=== PATIENT | female | born 1960 | race Caucasian/White ===

== ENCOUNTER 2023-09-04 06:48 | Day surgery (SDC) | payer OTHER, SELFPAY ==
[2023-09-02 11:24] VITALS: BMI 44.2
[2023-09-04] VITALS (8 sets, daily range): BP systolic 108–120; BP diastolic 48–68; PULSE 56–69; RESP 16; TEMP 36.6; O2SAT 95–97; BMI 44.6
[2023-09-04] MEDS: Lactated Ringers 1,000 ML 100 ML IVCONT (07:37)
[2023-09-04 07:45] LABS: Glucose, Whole Blood 121 mg/dL (60-115)
--- NOTE | 2023-09-04 11:55 | P.CONAN_ITS ---
Documented by User: Abigail Orellana NP 09/03/23 08:24 HPI - Anesthesia Eval Consult details Narrative: 63yo F for Bilateral Medial Rectus Eye Muscle Recession,Right Superior Rectus Recession Medically cleared [facility] Past Medical History Medical History Hyperlipidemia Allergic rhinitis Vitamin D deficiency Asthma Internal hemorrhoids Colon polyp GERD (gastroesophageal reflux disease) Depression Atypical endocervical cells on Pap smear Intermittent vertigo Morbid obesity with BMI of 40.0-44.9, adult Nocturnal hypoxemia Sleep apnea Diabetes Surgical History Surgical History Hx of wisdom tooth extraction H/O colonoscopy Social History Patient Tobacco Use Status: Never used Tobacco Use of substances other than those prescribed or required for medical reasons: No Are you DNR?: No Advance Directives: No Advance Directives Information Provided: Yes Meds Allergies Allergy/AdvReac Type Severity Reaction Status Date / Time Hydrocodone by Bitartrate Allergy Unknown Hives Uncoded 09/04/23 07:45 Skelaxin Allergy Unknown hives Uncoded 09/04/23 07:45 Zinc Allergy Unknown Swelling Uncoded 09/04/23 07:45 tongue Home Medications Medication Instructions Recorded Confirmed Last Taken Type albuterol sulfate 90 mcg/actuation 1 inh inhalation QID PRN Shortness 09/02/23 09/02/23 Unknown History aerosol inhaler Of Breath Or Wheezing atorvastatin 20 mg tablet 20 mg PO BEDTIME 09/02/23 09/04/23 09/04/23 History cetirizine 10 mg tablet 10 mg PO DAILY 09/02/23 09/02/23 Unknown History cholecalciferol (vitamin D3) 25 25 mcg PO DAILY 09/02/23 09/02/23 Unknown History mcg (1,000 unit) tablet fluticasone propionate 110 1 puff inhalation BID 09/02/23 09/02/23 Unknown History mcg/actuation HFA aerosol inhaler fluticasone propionate 50 1 spray intranasal DAILY 09/02/23 09/02/23 Unknown History mcg/actuation nasal spray,suspension meclizine 25 mg tablet 25 mg PO TID 09/02/23 09/02/23 Unknown History metformin 500 mg tablet,extended 500 mg PO DAILY 09/02/23 09/04/23 09/03/23 His tory release 24 hr gahptffx-aoi-bycvu acid 0.4 1 tab PO DAILY 09/02/23 09/04/23 09/04/23 History mg-lycopene 300 mcg-lutein 250 mcg tablet omega-3 fatty acids-vitamin E 1 cap PO DAILY 09/02/23 09/04/23 09/04/23 History 1,000 mg-5 unit capsule pantoprazole 40 mg tablet,delayed 40 mg PO DAILY 09/02/23 09/04/23 09/04/23 History release simethicone 125 mg chewable tablet 125 mg PO QID PRN Gastrointestinal 09/02/23 09/02/23 Unknown History Spasms Or Cramping venlafaxine 75 mg tablet,extended 75 mg PO DAILY 09/02/23 09/04/23 09/04/23 History release 24 hr Exam Height,Weight and Vital Signs: Height 5 ft 6 in Weight 124.284 kg Assessment and Plan Assessment Anesthesia Assessment: Chart Reviewed Documented by User: Mimi Johnson DO 09/04/23 11:56 [facility] Past Medical History Medical History Hyperlipidemia Allergic rhinitis Vitamin D deficiency Asthma Internal hemorrhoids Colon polyp GERD (gastroesophageal reflux disease) Depression Atypical endocervical cells on Pap smear Intermittent vertigo Morbid obesity with BMI of 40.0-44.9, adult Nocturnal hypoxemia Sleep apnea Diabetes Family History Family history of problems with anesthesia: No Surgical History Surgical History Hx of wisdom tooth extraction H/O colonoscopy History of Problems with Anesthesia: No Social History Patient Tobacco Use Status: Never used Tobacco Use of substances other than those prescribed or required for medical reasons: No Are you DNR?: No Advance Directives: No Advance Directives Information Provided: Yes Meds Allergies Allergy/AdvReac Type Severity Reaction Status Date / Time Hydrocodone by Bitartrate Allergy Unknown Hives Uncoded 09/04/23 07:45 Skelaxin Allergy Unknown hives Uncoded 09/04/23 07:45 Zinc Allergy Unknown Swelling Uncoded 09/04/23 07:45 tongue Home Medications Medication Instructions Recorded Confirmed Last Taken Type albuterol sulfate 90 mcg/actuation 1 inh inhalation QID PRN Shortness 09/02/23 09/02/23 Unknown History aerosol inhaler Of Breath Or Wheezing atorvastatin 20 mg tablet 20 mg PO BEDTIME 09/02/23 09/04/23 09/04/23 History cetirizine 10 mg tablet 10 mg PO DAILY 09/02/23 09/02/23 Unknown History cholecalciferol (vitamin D3) 25 25 mcg PO DAILY 09/02/23 09/02/23 Unknown History mcg (1,000 unit) tablet fluticasone propionate 110 1 puff inhalation BID 09/02/23 09/02/23 Unknown History mcg/actuation HFA aerosol inhaler fluticasone propionate 50 1 spray intranasal DAILY 09/02/23 09/02/23 Unknown History mcg/actuation nasal spray,suspension meclizine 25 mg tablet 25 mg PO TID 09/02/23 09/02/23 Unknown History metformin 500 mg tablet,extended 500 mg PO DAILY 09/02/23 09/04/23 09/03/23 History release 24 hr kvxyvcux-hzs-ghddn acid 0.4 1 tab PO DAILY 09/02/23 09/04/23 09/04/23 History mg-lycopene 300 mcg-lutein 250 mcg tablet omega-3 fatty acids-vitamin E 1 cap PO DAILY 09/02/23 09/04/23 09/04/23 History 1,000 mg-5 unit capsule pantoprazole 40 mg tablet,delayed 40 mg PO DAILY 09/02/23 09/04/23 09/04/23 History release simethicone 125 mg chewable tablet 125 mg PO QID PRN Gastrointestinal 09/02/23 09/02/23 Unknown History Spasms Or Cramping venlafaxine 75 mg tablet,extended 75 mg PO DAILY 09/02/23 09/04/23 09/04/23 History release 24 hr Exam Exam Date and Time: September 04, 2023 1153 Airway Mallampati Class: III TM Dist: <=3cm Neck ROM: Full Loose/Missing/Broken Teeth: No Heart: S1S2 Lungs: CTAB Assessment and Plan Assessment Anesthesia Assessment: Anesthesia Plan Discussed and Chart Reviewed Final Anesthetic Review Family History of Problems with Anesthesia: No History of Problems with Anesthesia: No NPO: Yes ASA Class: III Final Preanesthetic Review: No Changes in Pt Med Stat, Meds/Allgs Chart Reviewed, Consent Obtained/Reviewed and Anes Risks/Benef Reviewed Patient Risk: Low Procedure Risk: Low Anesthetic Plan Anesthetic Plan: GA and Agree w/ Assess. and Plan Disposition: Standard PACU
[2023-09-04 12:13] LABS: Glucose, Whole Blood 103 mg/dL (60-115)
--- NOTE | 2023-09-04 14:18 | HO.OPHTHAL ---
Ophthalmology Operative Note Date of Service: 09/04/23 Narrative: diagnoses 1 esotropia 2. Right hypertropia. Procedures 1. Bilateral medial rectus recessions of 4.5 mm 2. Recession of right superior rectus [address] Diaz. Anesthesia general. Complications none. The patient was brought to the operating room placed under general anesthesia. The eyes were prepped and draped in the usual sterile ophthalmic fashion. A lid speculum was placed in the right eye and a peritomy was created around the superior and medial rectus muscles. The medial rectus was hooked and secured with a double-armed Vicryl suture. It was then disinserted from the globe and reattached to a position 4.5 mm behind the original insertion using a hang back technique. The superior rectus muscle was then hooked and secured with a double-armed Vicryl suture. It was disinserted from the globe and reattached to a position 1 mm behind the original insertion. Conjunctiva was closed with interrupted Vicryl sutures. An identical 4.5 mm resection was carried out on the medial rectus muscle of the left eye. The patient was then awoken from general anesthesia and discharged to postoperative recovery in good condition.
== END 2023-09-04 14:50 | disposition home or self-care (01) ==
PROVIDERS: PCP Internal Medicine; Visit Provider Ophthalmology
PROC: (CPT 67311; principal; 2023-09-04 12:40)
DX: H53.2 Diplopia (principal); H50.00 Unspecified esotropia; H50.21 Vertical strabismus, right eye; E11.36 Type 2 diabetes mellitus with diabetic cataract; E66.01 Morbid (severe) obesity due to excess calories; Z68.41 Body mass index [BMI] 40.0-44.9, adult; E78.00 Pure hypercholesterolemia, unspecified; J45.30 Mild persistent asthma, uncomplicated; G47.33 Obstructive sleep apnea (adult) (pediatric); F33.41 Major depressive disorder, recurrent, in partial remission; K21.9 Gastro-esophageal reflux disease without esophagitis; E55.9 Vitamin D deficiency, unspecified; Z79.51 Long term (current) use of inhaled steroids; Z79.84 Long term (current) use of oral hypoglycemic drugs; Z79.899 Other long term (current) drug therapy; Z88.8 Allergy status to other drugs, medicaments and biological substances
CPT/HCPCS: 67311; 67314; 82947; J0131; J1100; J1885; J2405; J2704; J3010

== ENCOUNTER 2024-12-29 13:36 | Outpatient (AMB) | payer OTHER, SELFPAY ==
--- NOTE | 2024-12-29 13:40 | MHC.OFFVIS ---
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 Has a varicose vein on the left thigh that has been painful for about two weeks. 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 She recently was seen at urgent care and diagnosed with cellulitis of the upper left leg, as well as varicose veins and referred here. Complaints include pain over varicosities, warmth, and heaviness of the lower extremities. It has been affecting their daily activities including walking and physical activity. It is noted more so in left upper leg. She is a nonsmoker and a prediabetic, not on any meds. Patient denies any previous venous surgery or injections. Patient denies any history of DVT/ PE. Patient denies any history of phlebitis. Trial of compression includes - nothing They now present for vascular evaluation regarding their varicose veins. [facility] Medical History Hyperlipidemia Allergic rhinitis Vitamin D deficiency Asthma Internal hemorrhoids Colon polyp GERD (gastroesophageal reflux disease) Depression Atypical endocervical cells on Pap smear Intermittent vertigo Morbid obesity with BMI of 40.0-44.9, adult Nocturnal hypoxemia Sleep apnea Diabetes Surgical History Hx of wisdom tooth extraction H/O colonoscopy Social History Comment: counts correct Patient Tobacco Use Status: Never used Tobacco Review of Systems Const Reports as per HPI and Denies weakness ENT Reports Normal hearing present and Denies dizziness Card Reports as per HPI, Denies chest pain, Denies chest pain at rest, Denies chest pain with activity, Denies dyspnea and Denies dyspnea on exertion Resp Reports as per HPI, Denies cough, Denies dyspnea and Denies dyspnea on exertion GI Reports as per HPI, Denies abdominal pain, Denies nausea and Denies vomiting Musc Denies numbness Skin/Breast Reports as per HPI, Denies erythema and Denies wounds Neuro Reports Normal hearing present, Denies dizziness, Denies numbness, Denies Sensory deficit (Neuro) and Denies weakness Psych Reports no additional complaints Endo Reports no additional complaints Physical Exam Const General: healthy appearing and no acute distress Orientation/consciousness: patient oriented x3 HEENT Head: Yes normal to inspection Ears: hearing grossly normal bilaterally Mouth: Normal oral and palatal mucosa present Resp Effort & Inspection: normal respiratory effort and able to speak in complete sentences Auscultation: clear to auscultation bilaterally Cardio Jugular venous distension: no JVD Rate: regular rate Rhythm: regular rhythm Heart sounds: S1 normal heart sound present and S2 normal heart sound present Bruits: no abdominal aortic bruits, no carotid bruits, no femoral bruits and no renal bruits Peripheral pulses: Peripheral pulses 2+ throughout GI Inspection: Yes normal to inspection Palpation (GI): No Abdominal aortic bruit present Skin General skin exam: no rashes or lesions noted Wounds: no wounds Hair: normal Neuro General: patient oriented x3 Cranial nerves: Yes Normal hearing present Cognition (Neuro): normal cognition Gait exam (Neuro): Normal gait present Motor exam (neuro): 5/5 motor strength present throughout Sensory Exam: No Sensory deficit (Neuro) Extrem Other: Left lower extremity: rope like varicosity, appx 5cm in length, noted on the left upper thigh across the leg. Painful to palpation. Slight erythema noted towards the groin. Yellow/brown bruised discoloration noted over the varicosity. Warm to the touch. SV noted around the knee. Palpable DP pulses. Trace peripheral edema noted. Right lower extremity: small rope like varicosity noted on the lateral aspect below the pretibial area, appx 2-3cm in length, not painful to palpation. SV noted around the knee. Palpable DP pulse. Trace peripheral edema noted. CEAP: C - 3 E - primary A - superficial P - reflux General: Yes normal to inspection, Yes full ROM, Yes capillary refill normal and Yes normal gait Assessment & Plan Assessment & Plan (1) Varicose veins of both lower extremities with inflammation: Code(s): I83.11 - Varicose veins of right lower extremity with inflammation; I83.12 - Varicose veins of left lower extremity with inflammation Category: Medical Plan: Lourdes is presenting today on a referral from urgent care for concerns of varicose veins. She was previously seen there due to pain and redness over her left upper thigh and was diagnosed with cellulitis. Likely due to patient presentation this was a superficial thrombophlebitis. I discussed whether to complete the course of antibiotics. We discussed to apply heat as well as batz-jim-pxokarn NSAIDs if this is still bothering her. In short, the patient has evidence of venous insufficiency. I have discussed the pathophysiology with the patient. In addition I have provided informational material regarding venous disease to the patient. We have discussed conservative measures including compression, elevation, and exercise. I have taken the liberty of ordering venous insufficiency testing with the patient. They will follow up with me after testing. The patient had an opportunity to ask questions regarding the treatment plan. All questions were answered. Imaging studies, laboratory studies and physical exam results were discussed and reviewed in detail. No major barriers to understanding were identified. The patient expressed understanding and agreement with the above treatment plan. The patient is aware they should contact our office by phone for worsening of the current condition or the appearance of new symptoms. Thank you for allowing me to participate in the vascular care of this patient. If you have any questions or concerns regarding the treatment for the above condition please do not hesitate to contact me. The office telephone contact is [phone]. This note is constructed using voice recognition software. While every effort has been made to ensure accuracy, firmware architect errors may have been included. Thank you for allowing me to participate in the care of your patient. Yours sincerely, RADHA Munroe Orders: Orders US venous duplex LE BI 1 Week I83.11 - Varicose veins of right lower extremity with inflammation, I83.12 - Varicose veins of left lower extremity with inflammation Coding Level of Care Code New Pt Level 4 (96853) Diagnoses Varicose veins of both lower extremities with inflammation I83.11; I83.12
--- OUTSIDE RECORDS SUMMARY | 2024-12-29 16:03 | XMS_ITS | Encounter Summary ---
Author Organization [facility] Address [address] [place] [address] Care Team Providers Care Paraffiner Name Role Phone Lili Moon MD Primary Care Provider [phone] Reason for Visit * Consultation (Routine) - Authorized Specialty Diagnoses / Procedures Referred By Ben perez Referred To Contact Physical Therapy Diagnoses Chronic pain of right upper extremity Heidi Esquivel PA [address] [place] [address] Phone: tel: fax: Referral ID Status Reason Start Date Expiration Date Visits Requested Visits Authorized [id number] Authorized Specialty Services Required 11/03/2024 11/03/2025 20 20 Encounter Details Date Type Department Care Team (Late st Contact Info) Description 12/23/2024 4:00 PM EDT Treatment [facility] Outpatient [address] [phone] Yaakov Celis PTA Chronic pain of right upper extremity (Primary Dx) Social History Tobacco Use Types Packs/Day Years Used Date Smoking Tobacco: Never Smokeless Tobacco: Never Alcohol Use Standard Drinks/Week Comments Yes 0 (1 standard drink = 0.6 oz pur e alcohol) Housing Instability Answer Date Recorde d Are you worried that in the next 2 months you may not have stable housing? No 10/31/2024 Food Access & Nutrition Answer Date Rec orded Do you have access to a vari ety of food including fruits and vegetables? Yes 10/31/2024 Access to Healthcare Answer Date Record ed Within the last 3 months, ho w many times did you visit the emergency department for your medical care? 0 10/31/2024 Health Literacy Answer Date Recorded How often do you need to hav e someone help you when you read instructions, pamphlets, or other written material from your doctor or pharmacy? Never 10/31/2024 Caregiver: How often do you need to have someone help you when you read instructions, pamphlets, or other written material from your doctor or pharmacy? Not on file 10/31/2024 Financial Risk Answer Date Recorded How hard is it for you to pa y for the very basics like food, housing, medical care, and air conditioning / heating? Not very hard 10/31/2024 Transportation Answer Date Recorded Has the lack of transportati on kept you from meetings, work, or from getting things needed for daily living? No Has the lack of transportati on kept you from medical appointments or from getting medications? No 10/31/2024 Social Isolation Answer Date Recorded How often do you feel lonely or isolated from th ose around you? Rarely 10/31/2024 Food Risk Answer Date Recorded Within the past 12 months we worried whether our food would run out before we got money to buy more. Never true 10/31/2024 Within the past 12 months th e food we bought just didn't last and we didn't have money to get more. Never true 10/31/2024 Dependent Care Answer Date Recorded Do you need help finding or paying for care for your loved ones. For example, child development director or elderly care for an older adult? No 10/31/2024 Education Answer Date Recorded Do you think completing more education or training, like finishing a GED, going to college, or learning a trade, would be helpful for you? N/A 10/31/2024 Employment and Income Answer Date Recor ded During the last four weeks, have you been actively looking for work? No 10/31/2024 Living Situation Answer Date Recorded What is your living situation? 0 10/31/2024 Comments No Sex and Gender Information Value Date Recorded Sex Assigned at Not on file Legal Sex Female 4:48 PM EST Gender Identity Not on file Sexual Orientation Not on file Travel History Travel Start Travel End [place] 11/28/2024 12/05/2024 documented as of this encounter Progress Notes * Yaakov Celis PTA - 12/23/2024 4:00 PM EDT [facility] - Outpatient PHYSICAL THERAPY DAILY TREATMENT NOTE - OP Date: 12/23/2024 Visit Number: 5 Patient Name: Lourdes Guerrier : 1960 Age: 64 y.o. Gender: female Diagnosis: ICD-10-CM ICD-9-CM 1. Chronic pain of right upper extremity M79.601 729.5 G89.29 338.29 Date of Onset/Surgery: 11/03/2024 Referring Provider: Heidi Esquivel PA Insurance: Payor: [employer] [facility] / Plan: [employer] [place] / Product Type: *No Product type* / Patient Identified by: Yaakov Celis PTA Language: Speaks and understands Chinese as preferred language with no loom operator required Medications: Current Outpatient Medications on File Prior to Visit Medication Sig Dispense Refill albuterol HFA (PROAIR HFA ; PROVENTIL HFA ; VENTOLIN HFA) 90 mcg/actuation inhaler Inhale 2 puffs by mouth 4 (four) times a day. 8.5 g 1 ascorbic acid (VITAMIN C) 500 mg CR capsule Take 1 capsule (500 mg total) by mouth 1 (one) time each day. atorvastatin (LIPITOR) 20 mg tablet Take 1 tablet (20 mg total) by mouth at bedtime. at bedtime. 90tablet 1 blood sugar diagnostic (FreeStyle Lite Strips) test strip Test blood sugar once daily cholecalciferol (VITAMIN D-3) 25 mcg (1,000 unit) capsule 1,000 Units. fluticasone HFA (FLOVENT HFA) 110 mcg/actuation inhaler Inhale 1 Puff into the lungs 2 times daily. fluticasone propionate (FLONASE) 50 mcg/actuation nasal spray 2 Sprays by Nasal route daily. Intranasal: Two sprays in each nostril once daily; once symptoms controlled reduce to 1 spray in each nostril once daily . Maintenance therapy is FREESTYLE LANCETS MISC Use to test blood sugar once daily multivitamin with minerals (MULTIPLE VITAMIN-MINERALS ORAL) Take by mouth. omega-3 acid ethyl esters (LOVAZA) 1 gram capsule 1,000 mg. pantoprazole (PROTONIX) 40 mg EC tablet Take 1 tablet (40 mg total) by mouth 1 (one) time each day before breakfast. Do not crush, chew, or split. 30 tablet 3 venlafaxine XR (EFFEXOR-XR) 75 mg 24 hr capsule Take 1 capsule (75 mg total) by mouth 1 (one) time each day. 90 capsule 1 No current facility-administered medications on file prior to visit. Allergies: is allergic to hydrocodone bitartrate, metaxalone, other, and zinc. Precautions: none Fall risk: No SUBJECTIVE Subjective Report: Not much pain in the neck or tingling in the arm today Chart Reviewed: Yes Pain: R cerv area, 01/21 TREATMENT INTERVENTION: Manual therapy Seated STM to R PC, R UT/levator/scalenes Man cerv traction OA release Exercises: UBE L1 x 3 mins Black tubing rows and B shld ext, 2x10 ea Pec stretch in doorway with hands low, 5x15 secs ea done unilaterally Seated man resisted isometric R and L cerv SB and ext, 10 x 5 secs ea Passive R and L UT and scalene stretching in supine ASSESSMENT/Response to Treatment Good Tolerated treatment well Patient Education: Education provided: yes. Reviewed posture and exs given at last visit Education Provided To: Patient utilizing Explanation and Demonstration mode(s) of education Response to Education: Verbal Understanding PLAN POC Development/Review: No Change in the Plan of Care; Participants: Patient Interventions Time Entry: Modalities: Therapeutic procedures: Manual Therapy Time Entry: 14 Therapeutic Exercise Time Entry: 16 Total Treatment Time: 30 mins Documentation completed by Yaakov Celis PTA documented in this encounter Plan of Treatment Upcoming Encounters Date Type Department Care Team (Late st Contact Info) Description 12/30/2024 4:00 PM EDT Treatment [address] [phone] Yaakov Celis PTA 01/06/2025 4:00 PM EDT Treatment [address] [place] [id number] Jaden Allan, PT [address] [place] [address] 01/18/2025 3:45 PM EDT Office Visit Adult Medicine [facility] [address] [place] [address] Lili Moon MD [address] [place], [place] documented as of this encounter Goals Goal Patient Goal Type Associated Problems Recent Progress Patient-Stated? Author PT STG x 8 visits General No Jaden lAlan PT Note: [] Pt will report an average shoulder pain level decrease of 2/10, [] Pt will increase right shoulder abd active ROM to 135 degrees, [] Pt will increase right shoulder flexion active ROM to 140 degrees []Pt will be able to work in computer >30 min without being limited by shoulder pain []Pt will improve C rotation to 70 deg to left in order to aid in looking over shoulder, []Pt will improve shoulder ER strength to 4/5 []Pt will be able to perform active scap retraction and depression which demonstrates good mm recruitment [] Pt will report a 50% reduction in paresthesia. PT LTG x 16 visits General No Jaden Allan PT Note: []Pt will be able to resume clasping/unclasping bra in the back []Pt will be able to resume carrying book bag or purse on right []Pt will be able to use computer >1 hr if needed without being limited by Sx []Pt will be able to carry laundry/trash bags with R UE PRN documented as of this encounter Visit Diagnoses Diagnosis Chronic pain of right upper extremity- Primary documented in this encounter Additional Health Concerns Assessment Noted Time PHQ-9 Depression Total Score: 1 10/31/19 25 11:54 PM EST documented as of this encounter Care Teams Paraffiner Relationship Specialty Start Date End Date Lili Moon MD [address] [place] [address] PCP - General Internal Medicine 08/25/21 documented as of this encounter
--- OUTSIDE RECORDS SUMMARY | 2024-12-29 16:03 | XMS_ITS | Encounter Summary ---
Author Organization [facility] Address [address] [place] [address] Care Team Providers Care Print Shop Manager Name Role Phone Lili Moon MD Primary Care Provider [phone] Reason for Visit * Consultation (Routine) - Authorized Specialty Diagnoses / Procedures Referred By Ben perez Referred To Contact Physical Therapy Diagnoses Chronic pain of right upper extremity Heidi Esquivel PA [address] [place] [address] Phone: tel: fax: Referral ID Status Reason Start Date Expiration Date Visits Requested Visits Authorized [id number] Authorized Specialty Services Required 11/03/2024 11/03/2025 20 20 Encounter Details Date Type Department Care Team (Late st Contact Info) Description 12/16/2024 4:00 PM EST Treatment [address] [id number] Yaakov Celis PTA Chronic pain of right [...] care for your loved ones. For example, children librarian or elderly care for an older adult? [...] file Travel History Travel Start Travel End [place] 11/28/2024 12/05/2024 documented as of this encounter Progress Notes * Yaakov Celis PTA - 12/16/2024 4:00 PM EST [facility] - Outpatient PHYSICAL THERAPY DAILY TREATMENT NOTE - OP Date: 12/16/2024 Visit Number: [id number] Patient Name: Lourdes Guerrier : 1960 Age: 64 y.o. Gender: female Diagnosis: ICD-10-CM ICD-9-CM 1. Chronic pain of right upper extremity M79.601 729.5 G89.29 338.29 Date of Onset/Surgery: 11/03/2024 Referring Provider: Heidi Esquivel PA Insurance: Payor: [employer] [facility] / Plan: [employer] ADMIN OF ID / Product Type: *No Product type* / Patient Identified by: Yaakov Celis PTA Language: Speaks and understands British as preferred language with no park manager required Medications: Current Outpatient Medications on File [...] (one) time each day. 90 capsule 1 [DISCONTINUED] pantoprazole (PROTONIX) 40 mg EC tablet TAKE 1 TABLET BY MOUTH EVERY MORNING ON AN EMPTY STOMACH, WAIT 30 MINUTES THEN EAT TO ACTIVATE MEDICATION 30 tablet 3 No current facility-administered medications on file prior to visit. Allergies: is allergic to hydrocodone bitartrate, metaxalone, other, and zinc. Precautions: none Fall risk: No SUBJECTIVE Subjective Report: Neck is more sore after working today, but tingling in R hand has been less frequent today Chart Reviewed: Yes Pain: R cerv area, 03/23 TREATMENT INTERVENTION: Manual therapy Seated STM to R PC, R UT/levator/scalenes Man cerv traction OA release Exercises: UBE L1 x 2 mins (10/14) Green tubing rows x 10 - increased cerv soreness Pec stretch in doorway with hands low, 5x20 secs ea Passive R and L UT and scalene stretching in supine Seated man resisted isometric R and L cerv SB and ext, 10 x 5 secs ea ASSESSMENT/Response to Treatment Good Tolerated treatment well Patient Education: Education provided: yes. Reviewed posture and exs given at last visit Education Provided To: Patient utilizing Explanation and Demonstration mode(s) of education Response to Education: Verbal Understanding PLAN POC Development/Review: No Change in the Plan of Care; Participants: Patient Interventions Time Entry: Modalities: Therapeutic procedures: Manual Therapy Time Entry: 15 Therapeutic Exercise Time Entry: 15 Total Treatment Time: 25 mins Documentation completed by Yaakov Celis PTA documented in this encounter Plan of Treatment Upcoming Encounters Date Type Department Care Team (Late st Contact Info) Description 12/30/2024 4:00 PM EDT Treatment [address] [address] Yaakov Celis, SALESPERSON [employer] 01/06/2025 4:00 PM EDT Treatment [facility] [place] [address] [address] Jaden Allan, PT [address] [place] [address] 01/18/2025 3:45 PM EDT Office Visit Adult Medicine [facility] [address] [place] [address] Lili Moon MD [address] [place] [address] documented as of this encounter Goals Goal Patient Goal Type Associated Problems Recent Progress Patient-Stated? Author PT STG x 8 visits General No Jaden Allan PT Note: [] Pt will report an [...] LTG x 16 visits General No Jaden Allan, PT Note: []Pt will be able to [...] documented as of this encounter Care Teams Print Shop Manager Relationship Specialty Start Date End Date Lili Moon MD [address] [place] [address] PCP - General Internal Medicine 08/25/21 documented as of this encounter
--- OUTSIDE RECORDS SUMMARY | 2024-12-29 16:03 | XMS_ITS | Clinical Summary ---
Author Organization [address] Address [address] [place], [place] [address] [address] Phone Care Team Providers Care Asset Protection Associate Name Role Phone Lili Moon MD Primary Care Provider [phone] Allergies Active Allergy Reactions Criticality Noted Date Comments Hydrocodone Bitartrate Hives 09/18/2006 Metaxalone Hives 09/18/2006 Other Nausea And Vomiting 02/05/2022 Zinc 09/18/2006 Other Reaction(s): Numbness, tingling or swelling of the lips, tongue or mouth Medications fluticasone HFA (FLOVENT HFA) 110 mcg/actuation inhaler Inhale 1 Puff into the lungs 2 times daily. 12/10/19 24 Active fluticasone propionate (FLONASE) 50 mcg/actuation nasal spray 2 Sprays by Nasal route daily. Intranasal: Two sprays in each nostril once daily; once symptoms controlled reduce to 1 spray in each nostril once daily . Maintenance therapy is 03/02/20 24 Active FREESTYLE LANCETS MISC Use to test blood sugar once daily 10/28/19 24 Active blood sugar diagnostic (FreeStyle Lite Strips) test strip Test blood sugar once daily 02/06/20 22 Active multivitamin with minerals (MULTIPLE VITAMIN-MINERALS ORAL) Take by mouth. Activ e cholecalciferol (VITAMIN D-3) 25 mcg (1,000 unit) capsule 1,000 Units. 08/23/20 17 Active omega-3 acid ethyl esters (LOVAZA) 1 gram capsule 1,000 mg. 08/23/20 17 Active ascorbic acid (VITAMIN C) 500 mg CR capsule Take 1 capsule (500 mg total) by mouth 1 (one) time each day. Active atorvastatin (LIPITOR) 20 mg tablet Take 1 tablet (20 mg total) by mouth at bedtime. at bedtime. 90 tablet 1 09/16/20 24 Active venlafaxine XR (EFFEXOR-XR) 75 mg 24 hr capsule Take 1 capsule (75 mg total) by mouth 1 (one) time each day. 90 capsule 1 09/16/20 24 Active albuterol HFA (PROAIR HFA ; PROVENTIL HFA ; VENTOLIN HFA) 90 mcg/actuation inhalerIndicatio ns:Mild intermittent asthma without complication Inhale 2 puffs by mouth 4 (four) times a day. 8.5 g 1 09/16/20 24 Active pantoprazole (PROTONIX) 40 mg EC tabletIndication s:Gastroesophage al reflux disease without esophagitis Take 1 tablet (40 mg total) by mouth 1 (one) time each day before breakfast. Do not crush, chew, or split. 30 tablet 3 12/16/19 25 Active pantoprazole (PROTONIX) 40 mg EC tabletIndication s:Gastroesophage al reflux disease without esophagitis TAKE 1 TABLET BY MOUTH EVERY MORNING ON AN EMPTY STOMACH, WAIT 30 MINUTES THEN EAT TO ACTIVATE MEDICATION 30 tablet 3 11/24/19 25 025 Discontin ued(Reord er) Active Problems Problem Noted Date Diagnosed Date Microalbuminuria 04/24/2024 Type II diabetes mellitus with renal manifestati ons 04/24/2024 Type 2 diabetes mellitus with cataract 3 Nocturnal hypoxemia 12/02/2019 Overview (07/31/2024): Overnight on CPAP 02/02/21 shows good control at 99.5% above 90%. No need for supplemental oxygen. Sleep apnea 12/02/2019 Overview (07/31/2024): INCONSISTENT USE OF CPAP (Jul 2022) [facility] Home Sleep Apnea Test: Date 11/30/2019; Wt 252#; BMI 40; KENYETTA 34, AI 20; HI 14; Unclassified apneas 179; Obstructive apneas 0; Central apneas 0; Mixed apneas 0; hypopneas 121; average oxygen saturation 90% (lowest 62% with saturations <88% for 5% or more of study) - Sleep Apnea - severe; mostly unclassified apneas; with sleep related hypoventilation by 2019 home sleep apnea test. Type 2 diabetes mellitus with morbid obesity Atypical endocervical cells on Pap smear 019 Intermittent vertigo 03/05/2019 Depression 07/08/2018 GERD (gastroesophageal reflux disease) 8 Colon polyp 08/25/2014 Internal hemorrhoids 08/20/2014 Vitamin D deficiency 04/14/2014 Allergic rhinitis 09/18/2006 Hyperlipidemia 09/18/2006 Asthma 09/18/2006 Encounters Date Type Department Care Team Description 12/28/2024 4:30 PM EDT Treatment [facility] [address] [phone] Roland Manning, SUPERVISOR LOCOMOTIVE Chronic pain of right upper extremity (Primary Dx) 12/23/2024 4:00 PM EDT Treatment [facility] [address] [phone] Yaakov Celis, SUPERVISOR LOCOMOTIVE Chronic pain of right upper extremity (Primary Dx) 12/16/2024 4:00 PM EST Treatment [facility] [address] [phone] Yaakov Celis, SUPERVISOR LOCOMOTIVE Chronic pain of right upper extremity (Primary Dx) 12/14/2024 4:00 PM EST Treatment [facility] [address] [phone] Yaakov Celis, SUPERVISOR LOCOMOTIVE Chronic pain of right upper extremity (Primary Dx) 12/10/2024 4:00 PM EST Treatment [facility] [address] [phone] Randy Gibbs, SUPERVISOR LOCOMOTIVE Chronic pain of right upper extremity (Primary Dx) 12/07/2024 4:30 PM EST Evaluation [facility] [address] [phone] Jaden Allan, PT Chronic pain of right upper extremity 11/03/2024 3:44 PM EST - 11/03/2024 11:59 PM EST Hospital Encounter XRAY - [address] [phone] Chronic pain of right upper extremity Discharge Disposition: Home or Self Care 11/03/2024 3:43 PM EST - 11/03/2024 11:59 PM EST Hospital Encounter XRAY - [address] [phone] Chronic pain of right upper extremity Discharge Disposition: Home or Self Care 11/03/2024 3:30 PM EST [facility] [address] [phone] Heidi Esquivel PA Chronic pain of right upper extremity (Primary Dx) 10/05/2024 8:26 AM EST - 10/05/2024 11:59 PM EST Hospital Encounter Radiology Department - [address] [phone] Visit for screening mammogram Discharge Disposition: Home or Self Care from Last 3 Months Immunizations Name Administration Dates Next Due Influenza Quadravalent, MDCK , 0.5ml, preservative free (Flucelvax) 6mo and older 07/22/2023,08/07/2022 Influenza trivalent, 0.5mL (Fluad) 65yo and olde r 07/21/2020 Influenza trivalent, 0.5mL, preservative free (Fluarix; FluLaval; Fluzone) ages 6mo and older (Afluria) 3 years and older 09/12/2016 Pneumococcal conjugate 13 va lent (Prevnar 13, PCV13) 2mo and older 12/06/2016 Pneumococcal conjugate 20 va lent (Prevnar 20, PCV 20) 2mo and older 09/17/2022 Pneumococcal polysaccharide 23 valent (Pneumovax 23) 2yo and older 07/08/2018 Respiratory syncytial virus (RSV), unspecified 0 12/16/2023 Tdap Tetanus diptheria acell ular pertussis (Boostrix; Adacel) 7yo and older 10/11/2022,12/06/2016 Zoster recombinant (Shingrix) 19yo and older 02/2022,02/10/2022 Surgical History Surgery Date Site/Laterality Comments WISDOM TOOTH EXTRACTION COLONOSCOPY 11/2022 SCR MAMMO BI INCL CAD 09/13/2021 Bilateral Medical History Medical History Date Comments Allergic rhinitis 09/18/2006 Hyperlipidemia 09/18/2006 Asthma 09/18/2006 Colon polyp 08/25/2014 Depression 07/08/2018 GERD (gastroesophageal reflux disease) 8 Internal hemorrhoids 08/20/2014 Vitamin D deficiency 04/14/2014 Morbid obesity with BMI of 40.0-44.9, adult ([facility]) 12/05/2018 Atypical endocervical cells on Pap smear 019 Intermittent vertigo 03/05/2019 Esophagitis Type 2 diabetes mellitus with cataract ([facility]) 05/09/2023 Type II diabetes mellitus with renal manifestati ons ([facility]) 04/24/2024 Family History Medical History Relation Name Comments Heart attack Maternal Grandfather Diabetes Mother brain aneurysm Breast cancer Neg Hx Colon cancer Neg Hx Ovarian cancer Neg Hx Uterine cancer Neg Hx Relation Name Status Comments Father unknown history Maternal Grandfather Maternal Grandmother unknown Mother (Age 60) Social History Tobacco Use Types Packs/Day Years Used Date Smoking Tobacco: Never Smokeless Tobacco: Never Tobacco Cessation:Counseling Given: Not Answered Alcohol Use Standard Drinks/Week Comments Yes 0 [...] Record ed Within the last 3 months, hector w many times did you visit the [...] for your loved ones. For example, child attendant or elderly care for an older adult? [...] file Travel History Travel Start Travel End [place] 11/28/2024 12/05/2024 Obstetrics History Para Term AB IAB SAB Ectopic Multiple Livin g Live Births 0 0 0 Last Filed Vital Signs Vital Sign Reading Time Taken Comments Blood Pressure 126/68 11/03/2024 3:19 PM EST Pulse 73 11/03/2024 3:19 PM EST Temperature 36.4 ??C (97.5 ??F) 11/03/2024 3:19 PM ES T Respiratory Rate 18 11/03/2024 3:19 PM EST Oxygen Saturation 96% 09/16/2024 3:11 PM EST Inhaled Oxygen Concentration - - Weight 116 kg (255 lb) 11/03/2024 3:19 PM EST Height 167.6 cm (5' 6 ) 11/03/2024 3:19 PM EST Body Mass Index 41.16 11/03/2024 3:19 PM EST Plan of Treatment Upcoming Encounters Date Type Department Care Team (Late st Contact Info) Description 12/30/2024 4:00 PM EDT Treatment [facility] [address] [phone] Yaakov Celis PTA 01/06/2025 4:00 PM EDT Treatment [facility] [address] [phone] Jaden Allan, PT [address] [place] [address] 01/18/2025 3:45 PM EDT Office Visit Adult Medicine [facility] [address] [place] [address] Lili Moon MD [address] [place] [address] Health Maintenance Due Date Last Done Comments Diabetes: Annual Foot Exam 1972 RSV Immunization Patients 60+ Years Old (1 - Risk 60-74 years 1-dose series) 2022 12/16/2023 HIV Screening 09/22/2022 Cervical Cancer Screening: HPV 06/04/2024 06/04/2019 Diabetes: Blood Sugar Control Test (HGBA1C) 03/11/2025 09/11/2024, 04/23/2024, 04/23/2024 Diabetes: Annual Urine Albumin-Creatinine Ratio (uACR) 04/23/2025 04/23/2024 Diabetes: Annual GFR (Glomerular Filtration Rate) 04/23/2025 04/23/2024, 04/23/2024 Diabetes: Annual Retina Eye Exam 07/02/2025 07/02/2024 Depression Screening 10/31/2025 10/31/2024 Social Influencers of Health Screening 10/31/2025 10/31/2024 Breast Cancer Screening 09/24/2026 09/24/20 24, 09/14/2023, 09/08/2022, Additional history exists Cholesterol Screening (Lipid Panel) 04/23/2029 04/23/2024, 04/23/2024 DTaP,Tdap,and Td Vaccines (3 - Td or Tdap) 10/11/2032 10/11/2022, 12/06/2016 Colorectal Cancer Screening: Colonoscopy 12/05/2032 12/05/2022 Hepatitis C Screening Completed 03/05/2019 Pneumococcal Vaccine: 50+ Years Completed 09/17/2022, 07/08/2018, 12/06/2016 Pneumococcal Vaccine: Pediatrics (0 to 5 Years) and At-Risk Patients (6 to 64 Years) Completed 09/17/2022, 07/08/2018, 12/06/2016 Zoster Vaccines Completed 09/17/2022, 02/10/2022 RSV Immunization Patients Under 20 months Aged Out 12/16/2023 No longer eligible based on patient's age to complete this topic COVID-19 Vaccine Completed 09/01/2024, 01/2024, 11/20/2021, Additional history exists Influenza Vaccine Completed 09/01/2024, , 08/07/2022, Additional history exists HIB Vaccines Aged Out No longer eligi ble based on patient's age to complete this topic HPV Vaccines Aged Out No longer eligi ble based on patient's age to complete this topic Hepatitis A Vaccines Aged Out No long er eligible based on patient's age to complete this topic Hepatitis B Vaccines Aged Out No long er eligible based on patient's age to complete this topic IPV Vaccines Aged Out No longer eligi ble based on patient's age to complete this topic MMR Vaccines Aged Out No longer eligi ble based on patient's age to complete this topic Meningococcal ACWY Vaccine Aged Out N o longer eligible based on patient's age to complete this topic Meningococcal B Vacine Aged Out No lo nger eligible based on patient's age to complete this topic Varicella Vaccines Aged Out No longer eligible based on patient's age to complete this topic Goals Goal Patient Goal Type Associated Problems [...] carry laundry/trash bags with R UE PRN Procedures Procedure Name Priority Date/Time Associated Diagnosis Comments XR CERVICAL SPINE 4-5 VIEWS Routine 11/03/2024 4:06 PM EST Chronic pain of right upper extremity XR SHOULDER 2+ VIEWS RIGHT Routine 11/03/2024 4:06 PM EST Chronic pain of right upper extremity MG RAD RETURN VISIT (NO CHARGE) Routine 10/05/2024 8:40 AM EST Visit for screening mammogram MG MAMMO DIGITAL SCREENING W ERVIN BILAT Routine 09/24/2024 4:21 PM EST Encounter for screening mammogram for breast cancer HEMOGLOBIN A1C Routine 09/11/2024 8:10 AM EST Type 2 diabetes mellitus with morbid obesity (CMS/HCC) DIABETES EYE EXAM Routine 07/02/2024 URINE ALBUMIN CREATININE RATIO Routine 04/23/2024 ANNUAL BMP BLOOD TEST Routine 04/23/2024 LIPID PANEL Routine 04/23/2024 COLONOSCOPY Routine 12/05/2022 HPV Routine 06/04/2019 HEPATITIS C SCREENING Routine 03/05/2019 from Last 3 Months or Most Recently Relevant to Health Maintenance Results * XR Cervical Spine 4-5 Views (11/03/2024 4:06 PM EST) Anatomical Region Laterality Modality Spine, C-spine Radiographic Viji ging 11/03/2024 4:44 PM EST Impressions 11/03/2024 4:46 PM EST Mild degenerative changes. -------- FINAL REPORT -------- Dictated By: Leobardo Sylvester Dictated Date: 11/03/2024 16:44 ET Assigned Physician: Leobardo Sylvester Reviewed and Electronically Signed By: Leobardo Sylvester Signed Date: 11/03/2024 16:46 ET Workstation ID: [id number] Transcribed By: Self Edit Transcribed Date: 11/03/2024 16:44 ET Narrative 11/03/2024 4:46 PM EST XR CERVICAL SPINE 4-5 VIEWS Reason: pain Comparison: None FINDINGS: Normal alignment. ??Vertebral body heights are maintained. ??Disc spaces are preserved. ??Small marginal osteophytes more prominent at inferior endplate of C6. ??Mild neuroforamina narrowing on the right side at C5-C6. ??Left neuroforamen are intact. Procedure Note Leobardo Sylvester MD - 11/03/2024 XR CERVICAL SPINE 4-5 VIEWS Reason: pain Comparison: None FINDINGS: Normal alignment. Vertebral body heights are maintained. Disc spaces arepreserved. Small marginal osteophytes more prominent at inferior endplateof C6. Mild neuroforamina narrowing on the right side at C5-C6. Leftneuroforamen are intact. IMPRESSION: Mild degenerative changes. -------- FINAL REPORT -------- Dictated By: Leobardo Sylvester Dictated Date: 11/03/2024 16:44 ET Assigned Physician: Leobardo Sylvester Reviewed and Electronically Signed By: Leobardo Sylvester Signed Date: 11/03/2024 16:46 ET Workstation ID: [id number] Transcribed By: Self Edit Transcribed Date: 11/03/2024 16:44 ET us Heidi GARCIA IMG XR PROCEDURES Final Resul t * XR Shoulder 2+ Views Right (11/03/2024 4:06 PM EST) Anatomical Region Laterality Modality Upper Extremities, Shoulder Right Radi ographic Imaging 11/03/2024 4:47 PM EST Impressions 11/03/2024 4:48 PM EST Minimal degenerative changes. -------- FINAL REPORT -------- Dictated By: Leobardo Sylvester Dictated Date: 11/03/2024 16:47 ET Assigned Physician: Leobardo Sylvester Reviewed and Electronically Signed By: Leobardo Sylvester Signed Date: 11/03/2024 16:48 ET Workstation ID: [id number] Transcribed By: Self Edit Transcribed Date: 11/03/2024 16:47 ET Narrative 11/03/2024 4:48 PM EST XR SHOULDER 2+ VIEWS RIGHT Reason: pain Comparison: None FINDINGS: Minimal degenerative change at the acromioclavicular joint. ??Glenohumeral joint is intact. ??No acute fracture. ??No abnormal soft tissue calcification. Procedure Note Leobardo Sylvester MD - 11/03/2024 XR SHOULDER 2+ VIEWS RIGHT Reason: pain Comparison: None FINDINGS: Minimal degenerative change at the acromioclavicular joint. Glenohumeraljoint is intact. No acute fracture. No abnormal soft tissuecalcification. IMPRESSION: Minimal degenerative changes. -------- FINAL REPORT -------- Dictated By: Leobardo Sylvester Dictated Date: 11/03/2024 16:47 ET Assigned Physician: Leobardo Sylvester Reviewed and Electronically Signed By: Leobardo Sylvester Signed Date: 11/03/2024 16:48 ET Workstation ID: [id number] Transcribed By: Self Edit Transcribed Date: 11/03/2024 16:47 ET us Heidi GARCIA IMG XR PROCEDURES Final Resul t * MG Rad Return Visit (No Charge) (10/05/2024 8:40 AM EST) Anatomical Region Laterality Modality N/A Mammography 10/05/2024 8:49 AM EST Impressions 10/05/2024 8:52 AM EST 1. No mammographic evidence of malignancy 2. Heterogeneous breast parenchyma BI-RADS CATEGORY: 2 - BENIGN RECOMMENDATION: Screening bilateral mammogram is recommended in 1 year. Mammo Location: [facility], [address] [place] [address], [id number], . -------- FINAL REPORT -------- Dictated By: Sam Ellington Dictated Date: 10/05/2024 08:49 ET Assigned Physician: Sam Ellington Reviewed and Electronically Signed By: Sam Ellington Signed Date: 10/05/2024 08:52 ET Workstation ID: [id number] Transcribed By: Self Edit Transcribed Date: 10/05/2024 08:49 ET Narrative 10/05/2024 8:52 AM EST A BILATERAL DIGITAL 3D SCREENING MAMMOGRAPHY, REPEAT EXAMINATION HISTORY: Routine screening. ??No family history of breast cancer. COMPARISON: Multiple priors dating back to 09/02/2021 Technique: Bilateral full field digital mammography (3D) was performed using standard CC and MLO projections , left cleavage view was performed CAD ??was used to evaluate this mammogram. FINDINGS: Right: No suspicious masses, groups of microcalcification or areas of architectural distortion identified. Stable typically benign parenchymal asymmetries. Left: No suspicious masses, groups of microcalcification or areas of architectural distortion identified. Stable typically benign parenchymal asymmetries. BREAST DENSITY: C - The breasts are heterogeneously dense which may obscure small masses. Procedure Note Sam Ellington MD - 10/05/2024 A BILATERAL DIGITAL 3D SCREENING MAMMOGRAPHY, REPEAT EXAMINATION HISTORY: Routine screening. No family history of breast cancer. COMPARISON: Multiple priors dating back to 09/02/2021 Technique: Bilateral full field digital mammography (3D) was performedusing standard CC and MLO projections , left cleavage view was performed CAD was used to evaluate this mammogram. FINDINGS: Right: No suspicious masses, groups of microcalcification or areas ofarchitectural distortion identified. Stable typically benign parenchymalasymmetries. Left: No suspicious masses, groups of microcalcification or areas ofarchitectural distortion identified. Stable typically benign parenchymalasymmetries. BREAST DENSITY: C - The breasts are heterogeneously dense which mayobscure small masses. IMPRESSION: 1. No mammographic evidence of malignancy 2. Heterogeneous breast parenchyma BI-RADS CATEGORY: 2 - BENIGN RECOMMENDATION: Screening bilateral mammogram is recommended in 1 year. Mammo Location: [facility], [address] [place] [address], [phone], . -------- FINAL REPORT -------- Dictated By: Sam Ellington Dictated Date: 10/05/2024 08:49 ET Assigned Physician: aSm Ellington Reviewed and Electronically Signed By: Sam Ellington Signed Date: 10/05/2024 08:52 ET Workstation ID: [id number] Transcribed By: Self Edit Transcribed Date: 10/05/2024 08:49 ET us Lili Moon MD IMG BI PROCEDURES Final Result * (ABNORMAL) MG Mammo Digital Screening w Ervin bilat (09/24/2024 4:21 PM EST) Anatomical Region Laterality Modality Breast Bilateral Mammography 09/25/2024 1:50 PM EST Impressions 09/25/2024 3:01 PM EST 1. ??Repeat examination is recommended due to artifact 2. Heterogeneous breast parenchyma BI-RADS CATEGORY: 0 - INCOMPLETE - NEED ADDITIONAL IMAGING EVALUATION. ??Technical recall RECOMMENDATION: Additional bilateral breast imaging recommended. Bilateral CC and MLO views to terminate artifact along the skin surface and visualization of lateral right breast. Mammo Location: [facility], [address] [place] [address], [id number], . -------- FINAL REPORT -------- Dictated By: Sam Ellington Dictated Date: 09/25/2024 13:50 ET Assigned Physician: Sam Ellington Reviewed and Electronically Signed By: Sam Ellington Signed Date: 09/25/2024 15:01 ET Workstation ID: [id number] Transcribed By: Self Edit Transcribed Date: 09/25/2024 13:51 ET Narrative 09/25/2024 3:01 PM EST A BILATERAL DIGITAL 3D SCREENING MAMMOGRAPHY HISTORY: Routine screening. ??No family history of breast cancer. COMPARISON: Multiple priors dating back to 09/02/2021 Technique: Bilateral full field digital mammography (3D) was performed using standard CC and MLO projections , left breast exaggerated CC CAD ??was used to evaluate this mammogram. FINDINGS: Repeat examination is recommended due to artifact along the skin surface and clipping of the right CC breast. ?? BREAST DENSITY: C - The breasts are heterogeneously dense which may obscure small masses. Procedure Note Sam Ellington MD - 09/25/2024 A BILATERAL DIGITAL 3D SCREENING MAMMOGRAPHY HISTORY: Routine screening. No family history of breast cancer. COMPARISON: Multiple priors dating back to 09/02/2021 Technique: Bilateral full field digital mammography (3D) was performedusing standard CC and MLO projections , left breast exaggerated CC CAD was used to evaluate this mammogram. FINDINGS: Repeat examination is recommended due to artifact along the skin surfaceand clipping of the right CC breast. BREAST DENSITY: C - The breasts are heterogeneously dense which mayobscure small masses. IMPRESSION: 1. Repeat examination is recommended due to artifact 2. Heterogeneous breast parenchyma BI-RADS CATEGORY: 0 - INCOMPLETE - NEED ADDITIONAL IMAGING EVALUATION. Technical recall RECOMMENDATION: Additional bilateral breast imaging recommended. Bilateral CC and MLOviews to terminate artifact along the skin surface and visualization oflateral right breast. Mammo Location: [facility], [address] [place] [address], [id number], . -------- FINAL REPORT -------- Dictated By: Sam Ellington Dictated Date: 09/25/2024 13:50 ET Assigned Physician: Sam Ellington Reviewed and Electronically Signed By: Sam Ellington Signed Date: 09/25/2024 15:01 ET Workstation ID: [id number] Transcribed By: Self Edit Transcribed Date: 09/25/2024 13:51 ET Lili Moon MD IMG BI PROCEDURES Final Result * Hemoglobin A1c (09/11/2024 8:10 AM EST) [facility] Hemoglobin A1C 5.9 <6.5 % LAB CHEMISTRY METHOD 09/11/2024 1:42 PM EST [facility] Mean Bld Glu Estim. 123 mg/dL LAB CHEMISTRY METHOD 09/11/2024 1:42 PM EST [facility] Blood Venous blood specimen / Unknown Venipuncture / Unknown 09/11/2024 8:10 AM EST 09/11/2024 8:10 AM EST Lili Moon MD LAB BLOOD ORDERABLES Final Resul t [facility] [address] [place] [address], [place] [phone] * Diabetes Eye Exam (07/02/2024) [facility] Diabetes: Annual Retina Eye Exam abstracted Historical Provider HEALTH MAINTENANCE Final Result * Urine Albumin Creatinine Ratio (04/23/2024) [facility] Urine Albumin Creatinine Ratio abstracted Historical Provider HEALTH MAINTENANCE Final Result * Annual BMP Blood Test (04/23/2024) [facility] Annual BMP Blood Test abstracted [facility] Provider HEALTH MAINTENANCE Final Result * Lipid panel (04/23/2024) [facility] LDL/HDL Ratio 3 0 - 4 Triglycerides 105 0 - 150 mg/dL Cholesterol 174 0 - 200 mg/dL HDL 57 >=40 mg/dL LDL Cholesterol 96 0 - 100 mg/dL Blood Venous blood specimen / Unknown Result [facility] Provider LAB BLOOD ORDERABLES Anastasia l Result * Colonoscopy (12/05/2022) [facility] Colonoscopy no interpretation , abstracted Anatomical Region Laterality Modality Other [facility] Provider HEALTH MAINTENANCE Final Result * Cervical Cancer Screening: HPV (06/04/2019) [facility] Cervical Cancer Screening: HPV negative, abstracted [facility] Provider HEALTH MAINTENANCE Final Result * Hepatitis C Screening (03/05/2019) [facility] Hepatitis C Screening abstracted [facility] Provider HEALTH MAINTENANCE Final Result from Last 3 Months or Most Recently Relevant to Health Maintenance [place] [address] [employer] [place] [address] Care Teams Asset Protection Associate Relationship Specialty Start Date End Date Lili Moon MD [address] [place] [address] PCP - General Internal Medicine 08/25/21
--- OUTSIDE RECORDS SUMMARY | 2024-12-29 16:03 | XMS_ITS | Encounter Summary ---
Author Organization [facility] Address [address] [place] [address] Care Team Providers Care Waste Transportation Technician Name Role Phone Lili Moon MD Primary Care Provider [phone] Reason for Visit * Consultation (Routine) - Authorized Specialty Diagnoses / Procedures Referred By Ben perez Referred To Contact Physical Therapy Diagnoses Chronic pain of right upper extremity Heidi Esquivel PA [address] [place] [address] Phone: tel: fax: Referral ID Status Reason Start Date Expiration Date Visits Requested Visits Authorized [id number] Authorized Specialty Services Required 11/03/2024 11/03/2025 20 20 Encounter Details Date Type Department Care Team (Late st Contact Info) Description 12/14/2024 4:00 PM EST Treatment [address] [phone] Yaakov Celis PTA Chronic pain of right [...] for your loved ones. For example, child welfare director or elderly care for an older [...] file Travel History Travel Start Travel End [place] 11/28/2024 12/05/2024 documented as of this encounter Progress Notes * Yaakov Celis PTA - 12/14/2024 4:00 PM EST [facility] - Outpatient PHYSICAL THERAPY DAILY TREATMENT NOTE - OP Date: 12/14/2024 Visit Number: 3 Patient Name: Lourdes Guerrier : 1960 Age: 64 y.o. Gender: female Diagnosis: ICD-10-CM ICD-9-CM 1. Chronic pain of right upper extremity M79.601 729.5 G89.29 338.29 Date of Onset/Surgery: 11/03/2024 Referring Provider: Heidi Esquivel PA Insurance: Payor: [employer] [facility] / Plan: [employer]MIN OF [place] / Product Type: *No Product type* / Patient Identified by: Yaakov Celis PTA Language: Speaks and understands Mexican as preferred language with no assistant statistician required Medications: Current Outpatient Medications on File Prior to Visit Medication Sig Dispense Refill pantoprazole (PROTONIX) 40 mg EC tablet TAKE 1 TABLET BY MOUTH EVERY MORNING ON AN EMPTY STOMACH, WAIT 30 MINUTES THEN EAT TO ACTIVATE MEDICATION 30 tablet 3 albuterol HFA (PROAIR HFA ; PROVENTIL HFA [...] esters (LOVAZA) 1 gram capsule 1,000 mg. venlafaxine XR (EFFEXOR-XR) 75 mg 24 hr capsule Take 1 capsule (75 mg total) by mouth 1 (one) time each day. 90 capsule 1 No current facility-administered medications on file prior to visit. Allergies: is allergic to hydrocodone bitartrate, metaxalone, other, and zinc. Precautions: none Fall risk: No SUBJECTIVE Subjective Report: Patient reports not much pain at the moment, R UE tingling intermittently Chart Reviewed: Yes Pain: minimal currently TREATMENT INTERVENTION: Manual therapy Seated STM to B PC, R UT/levator/scalenes Man cerv traction OA release Exercises: UBE L1 x 2 mins (10/14) Gentry tband rows x 10 - increased cerv soreness Pec stretch in doorway with hands low, 4x20 secs ea Passive R and L UT and scalene stretching in supine ASSESSMENT/Response to Treatment Good no change in pain this visit. Patient Education: Education provided: yes. Reviewed posture and exs given at last visit Education Provided To: Patient utilizing Explanation and Demonstration mode(s) of education Response to Education: Verbal Understanding PLAN POC Development/Review: No Change in the Plan of Care; Participants: Patient Interventions Time Entry: Modalities: Therapeutic procedures: Manual Therapy Time Entry: 15 Therapeutic Exercise Time Entry: 10 Total Treatment Time: 25 mins Documentation completed by Yaakov Celis PTA documented in this encounter Plan of Treatment Upcoming Encounters Date Type Department Care Team (Late st Contact Info) Description 12/30/2024 4:00 PM EDT Treatment [facility] [address] [phone] Yaakov Celis PTA 01/06/2025 4:00 PM EDT Treatment [facility] [address] [phone] Jaden Allan, PT [address] [place] [address] 01/18/2025 3:45 PM EDT Office Visit Adult Medicine [facility] [address] [place] [address] Lili Moon MD [address] [place], [place] documented as of this encounter Goals [...] documented as of this encounter Care Teams Waste Transportation Technician Relationship Specialty Start Date End Date Lili Moon MD [address] [place] [address] PCP - General Internal Medicine 08/25/21 documented as of this encounter
--- OUTSIDE RECORDS SUMMARY | 2024-12-29 16:03 | XMS_ITS | Encounter Summary ---
Author Organization [facility] Address [address] [place] [address] Care Team Providers Care Device Engineer Name Role Phone Lili Moon MD Primary Care Provider [phone] Reason for Visit * Consultation (Routine) - Authorized Specialty Diagnoses / Procedures Referred By Ben perez Referred To Contact Physical Therapy Diagnoses Chronic pain of right upper extremity Heidi Esquivel PA [address] [place] [address] Phone: tel: fax: Referral ID Status Reason Start Date Expiration Date Visits Requested Visits Authorized [id number] Authorized Specialty Services Required 11/03/2024 11/03/2025 20 20 Encounter Details Date Type Department Care Team (Late st Contact Info) Description 12/28/2024 4:30 PM EDT Treatment [facility] Out[facility] [address] [phone] Roland Manning, EMERGENCY VETERINARY ASSISTANT Chronic pain of right upper extremity (Primary [...] for your loved ones. For example, child care director or elderly care for an older [...] file Travel History Travel Start Travel End [place] 11/28/2024 12/05/2024 documented as of this encounter Progress Notes * Roland Manning PTA - 12/28/2024 4:30 PM EDT [facility] - Outpatient PHYSICAL THERAPY DAILY TREATMENT NOTE - OP Date: 12/28/2024 Visit Number: 6 Patient Name: Lourdes Guerrier : 1960 Age: 64 y.o. Gender: female Diagnosis: ICD-10-CM ICD-9-CM 1. Chronic pain of right upper extremity M79.601 729.5 G89.29 338.29 Date of Onset/Surgery: 11/03/2024 Referring Provider: Heidi Esquivel PA Insurance: Payor: [employer] [facility] / Plan: [employer] [facility] [place] / Product Type: *No Product type* / Patient Identified by: Roland Manning PTA Language: Speaks and understands Japanese as preferred language with no cocoa butter filter operator required Medications: Current Outpatient Medications on [...] cerv area, 01/21 TREATMENT INTERVENTION: Manual therapy Man cerv traction OA release Exercises: Black tubing rows and B shld ext, 2x10 ea Horz abd /empty cans/oh abd x20 ea green Pec stretch in doorway with hands low, 5x15 secs ea done unilaterally Passive R and L UT and scalene stretching in supine ASSESSMENT/Response to Treatment Good Tingling into right hand post session Patient Education: Education provided: yes. Reviewed posture and exs given at last visit Education Provided To: Patient utilizing Explanation and Demonstration mode(s) of education Response to Education: Verbal Understanding PLAN POC Development/Review: No Change in the Plan of Care; Participants: Patient Interventions Time Entry: Modalities: Therapeutic procedures: Total Treatment Time: 30 mins Documentation completed by Roland Manning PTA documented in this encounter Plan of Treatment Upcoming Encounters Date Type Department Care Team (Late st Contact Info) Description 12/30/2024 4:00 PM EDT Treatment [facility] [address] [phone] Yaakov Celis PTA 01/06/2025 4:00 PM EDT Treatment [facility] [address] [phone] Jaden Allan, PT [address] [place] [address] 01/18/2025 3:45 PM EDT Office Visit Adult Medicine [facility] [address] [place] [address] Lili Moon MD [address] [place], [place] documented as of this encounter Goals Goal Patient Goal Type Associated Problems Recent Progress Patient-Stated? Author PT STG x 8 visits General No Jaden Allan, PT Note: [] Pt will report an [...] documented as of this encounter Care Teams Device Engineer Relationship Specialty Start Date End Date Lili Moon MD [address] [place], [place] PCP - General Internal Medicine 08/25/21 documented as of this encounter
--- OUTSIDE RECORDS SUMMARY | 2024-12-29 16:03 | XMS_ITS | Encounter Summary ---
Author Organization [facility] Address [address] [place] [address] Care Team Providers Care Manager Support Services Name Role Phone Lili Moon MD Primary Care Provider [phone] Reason for Visit * Consultation (Routine) - Authorized Specialty Diagnoses / Procedures Referred By Ben perez Referred To Contact Physical Therapy Diagnoses Chronic pain of right upper extremity Heidi Esquivel PA [address] [place] [address] Phone: tel: fax: Referral ID Status Reason Start Date Expiration Date Visits Requested Visits Authorized [id number] Authorized Specialty Services Required 11/03/2024 11/03/2025 20 20 Encounter Details Date Type Department Care Team (Latest Contact Info) Description 12/07/2024 4:30 PM EST Evaluation [facility] Outpatient [facility] [address] [phone] Jaden Allan, PT [address] [place] [address] Chronic pain of right upper extremity Social History Tobacco Use Types Packs/Day Years [...] care for your loved ones. For example, manager child or elderly care for an older adult? [...] as of this encounter Progress Notes * Jaden Allan, PT - 12/07/2024 4:30 PM EST [facility] - Outpatient PHYSICAL THERAPY EVALUATION Date: 12/07/2024 Visit Number: 1 Patient Name: Lourdes Guerrier : 1960 Age: 64 y.o. Gender: female Diagnosis: ICD-10-CM ICD-9-CM 1. Chronic pain of right upper extremity M79.601 729.5 Ambulatory referral to Physical Therapy and Athletic Training G89.29 338.29 Date of Onset/Surgery: 11/03/2024 Pt comes in with C/O R sided pain, starting at neck and traveling to elbow. Pt feels tingling down R UE, to hand, primarily dorsum. Pt reports Sx began after undergoing a mammogram aprox 11/03/2024. Pt reports pain has gotten better, but the tingling has worsened, which really was not an issue initially. Pt had xray's of the shoulder, showing slight arthritic changes of AC joint. Pt also had x-ray of neck, which showed some degenerative changes as well, mostly mid to distal C spine. 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 Referring Provider: Heidi Esquivel PA Insurance: Payor: [employer] [facility] [place] / Plan: [employer] OF [place] / Product Type: *No Product type* / Patient identified by: Jaden Allan, PT Language: Speaks and understands German as preferred language with no satellite dish technician required Chart Reviewed: Yes Medications: Current Outpatient Medications on File Prior [...] facility-administered medications on file prior to visit. Advised Patient to contact MD with any questions regarding medications and importance of managing medication information. has a past medical history of Allergic rhinitis (09/18/2006), Asthma (09/18/2006), Atypical endocervical cells on Pap smear (03/05/2019), Colon polyp (08/25/2014), Depression (07/08/2018), Esophagitis, GERD (gastroesophageal reflux disease) (04/01/2018), Hyperlipidemia (09/18/2006), Intermittent vertigo (03/05/2019), Internal hemorrhoids (08/20/2014), Morbid obesity with BMI of 40.0-44.9, adult ([facility]) (12/05/2018), Type 2 diabetes mellitus with cataract ([facility]) (05/09/2023), Type II diabetes mellitus with renal manifestations ([facility]) (04/24/2024), and Vitamin D deficiency (04/14/2014). has a past surgical history that includes Coldiron tooth extraction; Colonoscopy (11/2022); and scr mammo bi incl cad (Bilateral, 09/13/2021). is allergic to hydrocodone bitartrate, metaxalone, other, and zinc. Precautions: diabetic SUBJECTIVE History of Present Illness/Subjective Report: Pt comes in with C/O R sided pain, starting at neck and traveling to elbow. Pt feels tingling down R UE, to hand, primarily dorsum. Pt reports Sx began after undergoing a mammogram aprox 11/03/2024. Pt reports pain has gotten better, but the tingling hasworsened, which really was not an issue initially. Pt had xray's of the shoulder, showing slight arthritic changes of AC joint. Pt also had x-ray of neck, which showed some degenerative changes as well, mostly mid to distal C spine. 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 Pain: Pain location(s): R UT to elbow 04/22 Home Environment: Lives with spouse and 2 adult children and animals. Pt lives in a one story home,with laundry and shower downstairs in basement. Prior Level of Function: No limitations. Current Functional Limitations: Reported by Patient has to carry books and purse on L only. Pt unable to lay/sleep on right. Difficulty writing/computer work >10-15 min; walking capacity aprox 30 min due to arm pain when walking. Pt has difficult carrying luggage, trash or laundry (pt health condition prevents him for aiding. Pt has to clasp/unclasp bra from front. Is the patient at Risk for Falls: No OBJECTIVE General Observations/Posture/Comments: Px= Pain UE MMT Right Left Shoulder flexion 4/5 4/5 Shoulder extension 5/5 5/5 Shoulder ABD 4/5 4/5 Shoulder ADD 5/5 5/5 Shoulder ER 4-/5 px 4/5 Shoulder IR 5/5 5/5 Elbow Flexion 5/5 5/5 Elbow Extension 5/5 5/5 Forearm Supination 5/5 5/5 Forearm Pronation 5/5 5/5 Wrist Flexion 5/5 5/5 Wrist Extension 5/5 5/5 Plant Maintenance Worker 5/5 5/ Lower trap Unable to assess Unable to assess Mid trap 3-/5 3-/5 Rhomboids 3-/5 3-/5 UE ROM--> In Degrees WFL unless otherwise noted AROM Right AROM Left PROM Right PROM Left Shoulder flexion (0-180) 130 135 140 px 146 px Shoulder extension (0-50) px Shoulder ABD (0-180) 130 px 140 130 px 140 Shoulder ER (0-90) 80 px down to elbow px Shoulder IR (0-80) Px down to elbow px Elbow Flexion (0-150) Elbow Extension (0) Forearm Supination (0-80) Forearm Pronation (0-80) Wrist Flexion (0-80) Wrist Extension (0-70) Spine ROM-- In Degrees Active Cervical flexion (0-50) 50 px to UT and neck Cervical extension (0-60) 30 px to UT and neck Cervical side bending R (0-45) 35 px Cervical side bending L (0-45) 25 Cervical rotation R (0-80) 73 Cervical rotation L (0-80) 63 px DTR's: present and symmetrical Sensation: WNL light touch Palpation: TTP over R RC, R C paraspinals, mid spinal processes and mid and distal R C articulatingpillars. Special Tests: Positive: C quadrant, Neer's Negative: Marshall-Matt, empty can and speed's, C distraction, nerve tension tests , ULTT Pt instructed on scap retraction and depression ASSESSMENT: Rehabilitation Potential: Rehab Potential: Condition Has Potential to Improve. There seems to be both a C spine and RC involvement to complaints, therefore both will be addressed. Lourdes Guerrier is a 64 y.o. female presenting for outpatient physical therapy evaluation with complaints of R UE pain and tingling.. Skilled Physical therapy is medically necessary to reach PT goals, improve ROM, strength, function and pain levels Learning Needs: Were Patient Learning needs assessed: Yes Learning Preferences: Explanation, Demonstration, and Printed Materials Barriers to Learning: No Barriers to Learning Patient Education: [x] Discussed, with patient and/or caregiver, the recommended plan of care/goals, the importance oftherapy and appointment compliance in order to achieve goals in a timely manner. GOALS Goals Addressed This Visit's Progress PT LTG x 16 visits []Pt will be able to resume clasping/unclasping bra in the back []Pt will be able to resume carrying book bag or purse on right []Pt will be able to use computer >1 hr if needed without being limited by Sx []Pt will be able to carry laundry/trash bags with R UE PRN PT STG x 8 visits [] Pt will report an average shoulder [...] will report a 50% reduction in paresthesia. PLAN POC Development/Review: Initial Evaluation; Participants: Patient Skilled Therapy Plan Required to improve ROM, strength, function, pain levels and achiever PT/pt goals. Planned Therapy Interventions: Biofeedback, Cold Pack, E-Stim -- Unattended, Hot Pack, Kinesiotaping, Manual Therapy, Mechanical Traction, Neuromuscular Re- education, Soft Tissue Mobility, TENS, Therapeutic Activity, Therapeutic Exercise, and Ultrasound Skilled PT recommended at a freq of 2 a week for 16 visits, with a re-eval after 4 wks. Recommended Consults: none Equipment Recommended: none; Equipment Provided: none BILLING TOTAL TREATMENT TIME: 60 Minutes Evaluation Medium Complexity Justification ::: A history of present problem with 1 - 2 personal factors and/or co-morbidities that impact the plan of care Documentation completed by Jaden Allan, PT [address] [address] Dept: [phone] Dept PATIENT NAME: Lourdes Guerrier : 1960 Certification: This is to certify that the above named patient, who is under my care, requires skilled Therapy services as described in the above treatment plan. I further certify that the services outlined in this plan are skilled and medically necessary. I have reviewed this plan for rehabilitation services, and I recommend that these services continue to meet the above stated goals and plan. SIGNATURE: DATE Heidi Esquivel PA Referring provider documented in this encounter Plan of Treatment Upcoming Encounters Date Type Department Care Team (Late st Contact Info) Description 12/30/2024 4:00 PM EDT Treatment [facility] [address] [phone] Yaakov Celis PTA 01/06/2025 4:00 PM EDT Treatment [facility] [address] [phone] Jaden Allan, PT [address] [place] [address] 01/18/2025 3:45 PM EDT Office Visit Adult Medicine [facility] [address] [place] [phone] Lili Moon MD [address] [place], [place] [id number] documented as of this encounter Goals Goal [...] paresthesia. PT LTG x 16 visits General Jaden Valdes, PT Note: []Pt will be able to [...] Diagnoses Diagnosis Chronic pain of right upper extremity documented in this encounter Orders Outpatient Referral Count Last Ordered Date Fir st Ordered Date AMB REFERRAL TO [facility]ICAL [facility] 1 12/07/2024 documented in this encounter Additional Health Concerns Assessment Noted Time PHQ-9 Depression Total Score: 1 10/31/19 25 11:54 PM EST documented as of this encounter Care Teams Manager Support Services Relationship Specialty Start Date End Date Lili Moon MD [address] [place] [address] PCP - General Internal Medicine 08/25/21 documented as of this encounter
--- OUTSIDE RECORDS SUMMARY | 2024-12-29 16:03 | XMS_ITS | Encounter Summary ---
Author Organization [facility] Address [address] [place] [address] Care Team Providers Care Gang Drill Operator Name Role Phone Lili Moon MD Primary Care Provider [phone] Reason for Visit * Consultation (Routine) - Authorized Specialty Diagnoses / Procedures Referred By Ben perez Referred To Contact Physical Therapy Diagnoses Chronic pain of right upper extremity Heidi Esquivel PA [address] [place] [address] Phone: tel: fax: Referral ID Status Reason Start Date Expiration Date Visits Requested Visits Authorized [id number] Authorized Specialty Services Required 11/03/2024 11/03/2025 20 20 Encounter Details Date Type Department Care Team (Late st Contact Info) Description 12/10/2024 4:00 PM EST Treatment [address] [phone] Randy Gibbs PTA Chronic pain of right upper extremity [...] care for your loved ones. For example, children's tutor or elderly care for an older adult? [...] file Travel History Travel Start Travel End [place] 11/28/2024 12/05/2024 documented as of this encounter Progress Notes * Randy Gibbs PTA - 12/10/2024 4:00 PM EST [facility] - Outpatient PHYSICAL THERAPY DAILY TREATMENT NOTE - OP Date: 12/10/2024 Visit Number: 2 Patient Name: Lourdes Guerrier : 1960 Age: 64 y.o. Gender: female Diagnosis: ICD-10-CM ICD-9-CM 1. Chronic pain of right upper extremity M79.601 729.5 G89.29 338.29 Date of Onset/Surgery: 11/03/2024 Referring Provider: Heidi Esquivel PA Insurance: Payor: [employer] [facility] [facility] / Plan: [employer] [place] / Product Type: *No Product type* / Patient Identified by: Randy Gibbs PTA Language: Speaks and understands Ethiopian as preferred language with no mail sorter and delivery required Medications: Current Outpatient Medications on File [...] risk: No SUBJECTIVE Subjective Report: Patient reports pain currently the same. Chart Reviewed: Yes Pain: 04/22 TREATMENT INTERVENTION: Manual therapy Seated STM Trapezius muscles, Cervical spine Exercises: Seated UT stretch 2 x 20 sec hold self assisted Levator stretch 2 x 20 sec each Reviewed Scapula retractions. Chin tucks supine with towel rolled under CP to R shoulder in sitting at no cost ASSESSMENT/Response to Treatment Good no change in pain this visit. Educated on Postural Awareness and to stretch often especially while at work Patient Education: Education provided: yes Education Provided To: Patient utilizing Explanation and Demonstration mode(s) of education Response to Education: Verbal Understanding PLAN POC Development/Review: No Change in the Plan of Care; Participants: Patient Interventions Time Entry: Modalities: Therapeutic procedures: Manual Therapy Time Entry: 15 Therapeutic Exercise Time Entry: 10 Total Treatment Time: 25 mins Documentation completed by Randy Gibbs PTA documented in this encounter Plan of Treatment Upcoming Encounters Date Type Department Care Team (Late st Contact Info) Description 12/30/2024 4:00 PM EDT Treatment [facility] [address] [phone] Yaakov Celis PTA 01/06/2025 4:00 PM EDT Treatment [facility] [address] [phone] Jaden Allan, PT [address] [place] [address] 01/18/2025 3:45 PM EDT Office Visit Adult Medicine [facility] [address] [place] [address] Lili Moon MD [address] [place], [place] documented as of this encounter Goals [...] documented as of this encounter Care Teams Gang Drill Operator Relationship Specialty Start Date End Date Lili Moon MD [address] [place] [address] PCP - General Internal Medicine 08/25/21 documented as of this encounter
== END 2024-12-29 14:17 | disposition home or self-care (01) ==
PROVIDERS: PCP Internal Medicine; Visit Provider Physician Assistant Surgical
DX: I83.11 Varicose veins of right lower extremity with inflammation (principal); I83.12 Varicose veins of left lower extremity with inflammation
CPT/HCPCS: 99204

== ENCOUNTER → 2024-12-29 13:36 | Outpatient (BNVA) | payer OTHER, SELFPAY | PROVIDERS: PCP Internal Medicine; Visit Provider Physician Assistant Surgical ==

== ENCOUNTER 2025-01-19 12:46 | Outpatient (REF) | payer OTHER, SELFPAY ==
--- NOTE | ~2025-01-19 | US_ITS ---
EXAMINATION: US LOWER EXTREMITY VENOUS (REFLUX EXAM), BILATERAL CLINICAL INFORMATION: Varices. COMPARISON: None. TECHNIQUE: Color flow triplex imaging and compression Doppler was performed to evaluate both the deep and the superficial systems bilaterally. To evaluate the superficial system, the examination was performed in the upright position. Color-flow Doppler ultrasound and compression ultrasound were utilized. In addition, maneuvers were utilized to demonstrate reflux. FINDINGS: 1. DEEP VENOUS ULTRASOUND OF THE RIGHT LOWER EXTREMITY: Common Femoral Vein: Compressible, normal respiratory variation and augmented flow. Femoral Vein: Compressible, normal color flow and augmentation. Popliteal Vein: Compressible, normal augmentation. Deep Reflux: There is no evidence of reflux in the deep system in either the common femoral vein, superficial femoral or the popliteal vein. There is no evidence of a Mandujano's cyst. 2. SUPERFICIAL ULTRASOUND WITH DOPPLER OF RIGHT LOWER EXTREMITY: GREAT SAPHENOUS VEIN: Saphenofemoral Junction: 0.9 cm; Reflux: 0 ms Proximal Thigh: 0.5 cm; Reflux: 0 ms Mid Thigh: 0.5 cm; Reflux: 0 ms Distal Thigh: 0.4 cm; Reflux: 0 ms At Knee: 0.4 cm; Reflux: 0 ms Proximal Calf: 0.6 cm; Reflux: 900 ms Mid Calf: 0.1 cm; Reflux: 0 ms Distal Calf: 0.3 cm; Reflux: 0 ms DUPLICATED MEDIAL GREAT SAPHENOUS VEIN: Diameter: None imaged Reflux: NA DUPLICATED LATERAL GREAT SAPHENOUS VEIN: Diameter: None imaged Reflux: NA SMALL SAPHENOUS VEIN: Saphenopopliteal Junction: 0.2 cm; Reflux: 0 ms Proximal: 0.2 cm; Reflux: 0 ms Distal: 0.2 cm; Reflux: 0 ms VEIN OF GIACOMINI: Size: 0.2 cm. Reflux: NA PERFORATORS: Location: Proximal and mid calf. Size: 0.2-0.4 cm. Reflux: NA VARICOSITIES: Location: Proximal and distal thigh and calf. Size: 0.3-0.5 cm. Reflux: 2572 ms in the proximal thigh and 2036 ms in the proximal calf. 3. DEEP VENOUS ULTRASOUND OF THE LEFT LOWER EXTREMITY: Common Femoral Vein: Compressible, normal respiratory variation and augmented flow. Femoral Vein: Compressible, normal color flow and augmentation. Popliteal Vein: Compressible, normal augmentation. Deep Reflux: There is no evidence of reflux in the deep system in either the common femoral vein, superficial femoral or the popliteal vein. There is no evidence of a Mandujano's cyst. 4. SUPERFICIAL ULTRASOUND WITH DOPPLER OF LEFT LOWER EXTREMITY: GREAT SAPHENOUS VEIN: Saphenofemoral Junction: 0.9 cm; Reflux: 0 ms Proximal Thigh: 0.5 cm; Reflux: 0 ms Mid Thigh: 0.3 cm; Reflux: 0 ms Distal Thigh: 0.3 cm; Reflux: 0 ms At Knee: 0.2 cm; Reflux: 0 ms Proximal Calf: 0.1 cm; Reflux: 0 ms Mid Calf: 0.1 cm; Reflux: 0 ms Distal Calf: 0.3 cm; Reflux: 0 ms DUPLICATED MEDIAL GREAT SAPHENOUS VEIN: Diameter: None imaged Reflux: NA DUPLICATED LATERAL GREAT SAPHENOUS VEIN: Diameter: 0.3 cm. Reflux: 844 ms in the mid thigh. SMALL SAPHENOUS VEIN: Saphenopopliteal Junction: 0.2 cm; Reflux: 0 ms Proximal: 0.2 cm; Reflux: 0 ms Distal: 0.3 cm; Reflux: 0 ms VEIN OF GIACOMINI: Size: 0.4 cm. Reflux: NA PERFORATORS: Location: Distal thigh and proximal to mid calf Size: 0.2 cm. Reflux: NA VARICOSITIES: Location: Mid thigh and mid to distal calf. Size: 0.3-0.5 cm. Reflux: 1568 ms in the mid calf. US/US venous duplex LE BI IMPRESSION: Right: Venous insufficiency, great saphenous vein below the knee. Varices with reflux in the proximal thigh and calf. Left: Venous insufficiency in the accessory saphenous vein lateral segment of the mid thigh. Varices in the mid calf with reflux. Electronically signed by: Perez Gauthier MD 01/19/2025 02:45 PM EDT
--- OUTSIDE RECORDS SUMMARY | 2025-01-19 15:21 | XMS_ITS | Clinical Summary ---
Author Organization [address] Address [address] [place], [place] [address] [address] Phone Care Team Providers Care Addressograph Operator Name Role Phone Lili Moon MD Primary Care Provider [phone] Allergies Active Allergy Reactions Criticality Noted Date Comments Hydrocodone Bitartrate Hives 09/18/2006 Metaxalone Hives 09/18/2006 Other Nausea And Vomiting 02/05/2022 Zinc 09/18/2006 Other Reaction(s): Numbness, tingling or swelling of the lips, tongue or mouth Medications fluticasone HFA (FLOVENT HFA) 110 mcg/actuation inhaler Inhale 1 Puff into the lungs 2 times daily. 4 Active fluticasone propionate (FLONASE) 50 mcg/actuation nasal spray 2 Sprays by Nasal route daily. Intranasal: Two sprays in each nostril once daily; once symptoms controlled reduce to 1 spray in each nostril once daily . Maintenance therapy is 4 Active FREESTYLE LANCETS MISC Use to test blood sugar once daily 4 Active blood sugar diagnostic (FreeStyle Lite Strips) test strip Test blood sugar once daily 2 Active multivitamin with minerals (MULTIPLE VITAMIN-MINERALS ORAL) Take by mouth. Activ e cholecalciferol (VITAMIN D-3) 25 mcg (1,000 unit) capsule 1,000 Units. 7 Active omega-3 acid ethyl esters (LOVAZA) 1 gram capsule 1,000 mg. 7 Active ascorbic acid (VITAMIN C) 500 mg CR capsule Take 1 capsule (500 mg total) by mouth 1 (one) time each day. Active atorvastatin (LIPITOR) 20 mg tablet Take 1 tablet (20 mg total) by mouth at bedtime. at bedtime. 90 tablet 1 4 Active venlafaxine XR (EFFEXOR-XR) 75 mg 24 hr capsule Take 1 capsule (75 mg total) by mouth 1 (one) time each day. 90 capsule 1 4 Active albuterol HFA (PROAIR HFA ; PROVENTIL HFA ; VENTOLIN HFA) 90 mcg/actuation inhalerIndicatio ns:Mild intermittent asthma without complication Inhale 2 puffs by mouth 4 (four) times a day. 8.5 g 1 4 Active pantoprazole (PROTONIX) 40 mg EC tabletIndication s:Gastroesophage al reflux disease without esophagitis Take 1 tablet (40 mg total) by mouth 1 (one) time each day before breakfast. Do not crush, chew, or split. 30 tablet 3 5 Active Active Problems Problem Noted Date Diagnosed Date Superficial phlebitis 01/18/2025 Microalbuminuria 04/24/2024 Type II diabetes mellitus with renal manifestati ons 04/24/2024 Type 2 diabetes mellitus with cataract 3 Nocturnal hypoxemia 12/02/2019 Overview (07/31/2024): Overnight on CPAP 02/02/21 shows good control at 99.5% above 90%. No need for supplemental oxygen. Sleep apnea 12/02/2019 Overview (07/31/2024): INCONSISTENT USE OF CPAP (Jul 2022) [facility] Home Sleep Apnea Test: Date 11/30/2019; Wt [...] Encounters Date Type Department Care Team Description 01/18/2025 3:45 PM EDT Office Visit Adult Medicine [address] [phone] Lili Moon MD Type 2 diabetes mellitus with stage 3 chronic kidney disease, without long-term current use of insulin, unspecified whether stage 3a or 3b CKD (CMS/HCC) (Primary Dx); Vitamin D deficiency; Gastroesophageal reflux disease without esophagitis; Other hyperlipidemia; Other depression; Superficial phlebitis; Acute cough 01/06/2025 4:00 PM EDT Treatment [address] [phone] Jaden Allan, PT Chronic pain of right upper extremity (Primary Dx) 12/30/2024 4:00 PM EDT Treatment [address] [phone] Yaakov Celis, [employer] Chronic pain of right upper extremity (Primary Dx) 12/28/2024 4:30 PM EDT Treatment [address] [phone] Roland Manning, [employer] Chronic pain of right upper extremity (Primary Dx) 12/23/2024 4:00 PM EDT Treatment [address] [phone] Yaakov Celsi, [employer] Chronic pain of right upper extremity (Primary Dx) 12/16/2024 4:00 PM EST Treatment [address] [phone] Yaakov Celis, [employer] Chronic pain of right upper extremity (Primary Dx) 12/14/2024 4:00 PM EST Treatment [address] [phone] Yaakov Celis, [employer] Chronic pain of right upper extremity (Primary Dx) 12/10/2024 4:00 PM EST Treatment [address] [phone] Randy Gibbs, [employer] Chronic pain of right upper extremity (Primary Dx) 12/07/2024 4:30 PM EST Evaluation [address] [phone] Jaden Allan, PT Chronic pain of right upper extremity 11/03/2024 3:44 PM EST - 11/03/2024 11:59 PM EST Hospital Encounter [address] [phone] Chronic pain of right upper extremity Discharge Disposition: Home or Self Care 11/03/2024 3:43 PM EST - 11/03/2024 11:59 PM [facility] Hospital Encounter [address] [phone] Chronic pain of right upper extremity Discharge Disposition: Home or Self Care 11/03/2024 3:30 PM EST Office Visit Adult Medicine [address] [phone] Heidi Esquivel PA Chronic pain of right upper extremity (Primary Dx) from Last 3 Months Immunizations Name Administration [...] Morbid obesity with BMI of 40.0-44.9, adult ([facility]) 12/05/2018 Atypical endocervical cells on Pap smear 019 Intermittent vertigo 03/05/2019 Esophagitis Type 2 diabetes mellitus with cataract 3 Type II diabetes mellitus with renal manifestati ons ([facility]) 04/24/2024 Family History Medical History Relation Name [...] your loved ones. For example, child care team lead or elderly care for an older adult? [...] Information Value Date Recorded Sex Assigned at Female 01/19/2025 9:57 AM EDT Legal Sex Female 4:48 PM EST Gender Identity Female 01/19/2025 9:57 AM EDT Sexual Orientation Straight 01/19/2025 9: 57 AM EDT Obstetrics History Para Term AB IAB SAB Ectopic Multiple Livin g Live Births 0 0 0 Last Filed Vital Signs Vital Sign Reading Time Taken Comments Blood Pressure 110/60 01/18/2025 3:20 PM EDT Pulse 76 01/18/2025 3:20 PM EDT Temperature 36.1 ??C (96.9 ??F) 01/18/2025 3:20 PM ED T Respiratory Rate 16 01/18/2025 3:20 PM EDT Oxygen Saturation 95% 01/18/2025 3:20 PM EDT Inhaled Oxygen Concentration - - Weight 119 kg (263 lb 1.6 oz) 01/18/2025 3:20 PM EDT Height 167.6 cm (5' 6 ) 01/18/2025 3:20 PM EDT Body Mass Index 42.47 01/18/2025 3:20 PM EDT Plan of Treatment Upcoming Encounters Date Type Department Care Team (Late st Contact Info) Description 01/19/2025 4:00 PM EDT Treatment [facility] [address] [phone] Yaakov Celis, [employer] 01/21/2025 3:30 PM EDT Treatment [address] [phone] Randy Gibbs, [employer] 01/25/2025 3:30 PM EDT Treatment [facility] [address] [phone] Vikram Schwarz, [employer] 01/27/2025 3:30 PM EDT Treatment [facility] [address] [phone] Randy Gibbs, [employer] 02/01/2025 3:30 PM EDT Treatment [address] [phone] Randy Gibbs, [employer] 02/03/2025 3:30 PM EDT Treatment [facility] [address] [phone] Randy Gibbs PTA 02/08/2025 3:30 PM EDT Treatment [facility] [address] [phone] Jaden Allan, PT [address] [place] [address] 05/24/2025 11:30 AM EDT Office Visit Adult Medicine [facility] [address] [place] [address] Heidi Esquivel PA [address] [place] [address] Health Maintenance Due Date Last Done Comments Diabetes: Annual Foot Exam 1972 RSV Immunization Adult Patients (1 - Risk 60-74 years 1-dose series) 2022 12/16/2023 HIV Screening 09/22/2022 Cervical Cancer Screening: HPV 06/04/2024 06/04/2019 Diabetes: Annual Retina Eye Exam 07/02/2025 07/02/2024 Diabetes: Blood Sugar Control Test (HGBA1C) 07/04/2025 01/01/2025, 09/11/2024, 04/23/2024, Additional history exists Depression Screening 10/31/2025 10/31/2024 Social Influencers of Health Screening 10/31/2025 10/31/2024 Diabetes: Annual Urine Albumin-Creatinine Ratio (uACR) 01/01/2026 01/01/2025, 04/23/2024 Diabetes: Annual GFR (Glomerular Filtration Rate) 01/01/2026 01/01/2025, 04/23/2024, 04/23/2024 Breast Cancer Screening 09/24/2026 09/24/20 24, 09/14/2023, 09/08/2022, Additional history exists Cholesterol Screening (Lipid Panel) 01/01/2030 01/01/2025, 04/23/2024, 04/23/2024 DTaP,Tdap,and Td Vaccines (3 - [...] age to complete this topic Meningococcal B Vaccine Aged Out No l onger eligible based on patient's age to complete this topic Varicella Vaccines Aged Out No longer eligible based on patient's age to complete this topic Goals Goal Patient Goal Type Associated Problems Recent Progress Patient-Stated? Author PT STG x 8 visits General No Jaden Allan PT Note: [x] Pt will report an average shoulder pain level decrease of 2/10, [x] Pt will increase right shoulder abd active ROM to 135 degrees, [x] Pt will increase right shoulder flexion active ROM to 140 degrees [x]Pt will be able to work in computer >30 min without being limited by shoulder pain [x]Pt will improve C rotation to 70 deg to left in order to aid in looking over shoulder, [x]Pt will improve shoulder ER strength to 4/5 []Pt will be able to perform active scap retraction and depression which demonstrates good mm recruitment [x] Pt will report a 50% reduction in [...] Procedure Name Priority Date/Time Associated Diagnosis Comments COMPREHENSIVE METABOLIC PANEL Routine 01/01/2025 8:12 AM EDT Type 2 diabetes mellitus with stage 3 chronic kidney disease, without long-term current use of insulin, unspecified whether stage 3a or 3b CKD (CMS/HCC) HEMOGLOBIN A1C Routine 01/01/2025 8:12 AM EDT Type 2 diabetes mellitus with stage 3 chronic kidney disease, without long-term current use of insulin, unspecified whether stage 3a or 3b CKD (CMS/HCC) LIPID PANEL WITH REFLEX TO DIRECT LDL Routine 01/01/2025 8:12 AM EDT Other hyperlipidemia MICROALBUMIN CREATININE URINE RATIO Routine 01/01/2025 8:12 AM EDT Type 2 diabetes mellitus with stage 3 chronic kidney disease, without long-term current use of insulin, unspecified whether stage 3a or 3b CKD (CMS/HCC) XR CERVICAL SPINE 4-5 VIEWS Routine 11/03/2024 4:06 PM EST Chronic pain of right upper extremity XR SHOULDER 2+ VIEWS RIGHT Routine 11/03/2024 4:06 PM EST Chronic pain of right upper extremity MG MAMMO DIGITAL SCREENING W ERVIN BILAT Routine 09/24/2024 4:21 PM EST Encounter for screening mammogram for breast cancer DIABETES EYE EXAM Routine 07/02/2024 COLONOSCOPY Routine 12/05/2022 HPV Routine 06/04/2019 HEPATITIS C SCREENING Routine 03/05/2019 from Last 3 Months or Most Recently Relevant to Health Maintenance Results * Lipid panel with reflex to direct LDL (01/01/2025 8:12 AM EDT) Cholesterol 151 0 - 200 mg/dL LAB CHEMISTRY METHOD 01/01/2025 12:24 PM EDT [facility] Triglycerides 68 0 - 150 mg/dL LAB CHEMISTRY METHOD 01/01/2025 12:24 PM EDT [facility] HDL 57 >=40 mg/dL LAB CHEMISTRY METHOD 01/01/2025 12:24 PM EDT [facility] LDL Calculated 80 0 - 100 mg/dL LAB CHEMISTRY METHOD 01/01/2025 12:24 PM EDT [facility] VLDL Cholesterol Fermin 13.6 mg/dL LAB CHEMISTRY METHOD 01/01/2025 12:24 PM EDT [facility] Non HDL Chol. (LDL+VLDL) 94 <145 mg/dL LAB CHEMISTRY METHOD 01/01/2025 12:24 PM EDT [facility] Chol/HDL Ratio 2.6 0.0 - 4.4 LAB CHEMISTRY METHOD 01/01/2025 12:24 PM EDT [facility] Blood Venous blood specimen / Unknown Venipuncture / Unknown 01/01/2025 8:12 AM EDT 01/01/2025 8:12 AM EDT us Lili Moon MD LAB BLOOD ORDERABLES Final Resul t [facility] [address] [place] [address], [place] [phone] * Microalbumin creatinine urine ratio (01/01/2025 8:12 AM EDT) Creatinine, Urine 186.0 mg/dL LAB CHEMISTRY METHOD 01/01/2025 12:47 PM EDT [facility] Microalb, Ur 11.9 0.0 - 29.0 mg/L LAB CHEMISTRY METHOD 01/01/2025 12:47 PM EDT [facility] Microalb/Creat Ratio 6 <30 mg/g creat LAB CHEMISTRY METHOD 01/01/2025 12:47 PM EDT [facility] Urine Urine specimen obtained by clean catch procedure / Unknown Non-blood Collection / Unknown 01/01/2025 8:12 AM EDT 01/01/2025 8:12 AM EDT us Lili Moon MD LAB URINE ORDERABLES Final Resul t [facility] [address] [place] [address], [place] [phone] * (ABNORMAL) Hemoglobin A1c (01/01/2025 8:12 AM EDT) Hemoglobin A1C 6.8(H) <6.5 % LAB CHEMISTRY METHOD 01/01/2025 11:17 AM EDT [facility] Mean Bld Glu Estim. 148 mg/dL LAB CHEMISTRY METHOD 01/01/2025 11:17 AM EDT [facility] Blood Venous blood specimen / Unknown Venipuncture / Unknown 01/01/2025 8:12 AM EDT 01/01/2025 8:12 AM EDT us Lili Moon MD LAB BLOOD ORDERABLES Final Resul t [facility] [address] [place] [address], [place] [phone] * (ABNORMAL) Comprehensive metabolic panel (01/01/2025 8:12 AM EDT) Sodium 141 133 - 145 mmol/L LAB CHEMISTRY METHOD 01/01/2025 1:57 PM [facility] Potassium 4.5 3.5 - 5.5 mmol/L LAB CHEMISTRY METHOD 01/01/2025 1:57 PM [facility] Chloride 109 96 - 110 mmol/L LAB CHEMISTRY METHOD 01/01/2025 1:57 PM [facility] CO2 29 21 - 32 mmol/L LAB CHEMISTRY METHOD 01/01/2025 1:57 PM [facility] Anion Gap 3 3 - 11 LAB CHEMISTRY METHOD 01/01/2025 1:57 PM [facility] Glucose 130(H) 70 - 100 mg/dL LAB CHEMISTRY METHOD 01/01/2025 1:57 PM [facility] BUN 15 5 - 25 mg/dL LAB CHEMISTRY METHOD 01/01/2025 1:57 PM [facility] Creatinine 0.90 0.50 - 1.10 mg/dL LAB CHEMISTRY METHOD 01/01/2025 1:57 PM [facility] eGFR 72 >=60 mL/min/1. 73m2 LAB CHEMISTRY METHOD 01/01/2025 1:57 PM [facility] Comment:Calculation based on the??Chronic Kidney Disease Epidemiology Collaboration (CKD-EPI) equation refit??without adjustment for race. BUN/Creatinine Ratio 16.7 LAB CHEMISTRY METHOD 01/01/2025 1:57 PM [facility] Calcium 9.1 8.5 - 10.5 mg/dL LAB CHEMISTRY METHOD 01/01/2025 1:57 PM [facility] AST (SGOT) 23 10 - 42 unit/L LAB CHEMISTRY METHOD 01/01/2025 1:57 PM EDT [facility] ALT (SGPT) 29 10 - 60 unit/L LAB CHEMISTRY METHOD 01/01/2025 1:57 PM EDT [facility] Alkaline Phosphatase 91 42 - 121 unit/L LAB CHEMISTRY METHOD 01/01/2025 1:57 PM EDT [facility] Total Protein 7.3 6.0 - 8.0 g/dL LAB CHEMISTRY METHOD 01/01/2025 1:57 PM EDT [facility] Albumin 3.4 3.2 - 5.0 g/dL LAB CHEMISTRY METHOD 01/01/2025 1:57 PM EDT [facility] Total Bilirubin 0.4 0.0 - 1.4 mg/dL LAB CHEMISTRY METHOD 01/01/2025 1:57 PM EDT [facility] Blood Venous blood specimen / Unknown Venipuncture / Unknown 01/01/2025 8:12 AM EDT 01/01/2025 8:12 AM EDT us Lili Moon MD LAB BLOOD ORDERABLES Final Resul t [facility] [address] [place] [address], [place] [phone] * XR Cervical Spine 4-5 Views (11/03/2024 4:06 PM EST) Anatomical Region Laterality Modality Spine, C-spine Radiographic Viji ging 11/03/2024 4:44 PM EST Impressions 11/03/2024 4:46 PM EST Mild degenerative changes. -------- FINAL REPORT -------- Dictated By: Leobardo Sylvester Dictated Date: 11/03/2024 16:44 ET Assigned Physician: Leobardo Sylvester Reviewed and Electronically Signed By: Leobardo Sylvester Signed Date: 11/03/2024 16:46 ET Workstation ID: [id number] Transcribed By: Self Edit Transcribed Date: 11/03/2024 [...] Signed Date: 11/03/2024 16:46 ET Workstation ID: [id number] Transcribed By: Self Edit Transcribed Date: 11/03/2024 16:44 ET Heidi GARCIA IMG XR PROCEDURES Final Resul [...] Signed Date: 11/03/2024 16:48 ET Workstation ID: [id number] Transcribed By: Self Edit Transcribed Date: 11/03/2024 [...] Signed Date: 11/03/2024 16:48 ET Workstation ID: [id number] Transcribed By: Self Edit Transcribed Date: 11/03/2024 16:47 ET Heidi GARCIA IMG XR PROCEDURES Final Resul t * (ABNORMAL) MG Mammo Digital Screening w [...] visualization of lateral right breast. Mammo Location: [facility], [address] [place] [address], [id number], . -------- FINAL REPORT -------- Dictated By: Sam Ellington Dictated Date: 09/25/2024 13:50 ET Assigned Physician: Sam Ellington Reviewed and Electronically Signed By: Sam Ellington Signed Date: 09/25/2024 15:01 ET Workstation ID: [id number] Transcribed By: Self Edit Transcribed Date: 09/25/2024 [...] and visualization oflateral right breast. Mammo Location: [facility], [address] [place] [address], [address], . -------- FINAL REPORT -------- Dictated By: Sam Ellington Dictated Date: 09/25/2024 13:50 ET Assigned Physician: Sam Ellington Reviewed and Electronically Signed By: Sam Ellington Signed Date: 09/25/2024 15:01 ET Workstation ID: [id number] Transcribed By: Self Edit Transcribed Date: 09/25/2024 13:51 ET Lili Moon MD IMG BI PROCEDURES Final Result * Diabetes Eye Exam (07/02/2024) [facility] Diabetes: Annual Retina Eye Exam abstracted Historical Provider HEALTH MAINTENANCE Final Result * Colonoscopy (12/05/2022) [facility] Colonoscopy no interpretation , abstracted Anatomical Region Laterality Modality Other [facility] Provider HEALTH MAINTENANCE Final Result * Cervical Cancer Screening: HPV (06/04/2019) [facility] Cervical Cancer Screening: HPV negative, abstracted [facility] Provider HEALTH MAINTENANCE Final Result * Hepatitis C Screening (03/05/2019) [facility] Hepatitis C Screening abstracted Historical Provider HEALTH MAINTENANCE Final Result from Last 3 Months or Most Recently Relevant to Health Maintenance [place] [address] [employer] [facility] [place] [address] [employer] [facility] [place] [address] Care Teams Addressograph Operator Relationship Specialty Start Date End Date Lili Moon MD [address] [place] [address] PCP - General Internal Medicine 08/25/21
--- OUTSIDE RECORDS SUMMARY | 2025-01-19 15:21 | XMS_ITS | Encounter Summary ---
Author Organization [facility] Address [address] [place] [address] Care Team Providers Care Engine Repairer Name Role Phone Lili Moon MD Primary Care Provider [phone] Reason for Visit * Reason Comments Diabetes Hyperlipidemia Encounter Details Date Type Department Care Team (Late st Contact Info) Description 01/18/2025 3:45 PM EDT Office Visit Adult Medicine [address] [phone] Lili Moon MD [address] [place] [address] Type 2 diabetes mellitus with stage 3 chronic kidney disease, without long-term current use of insulin, unspecified whether stage 3a or 3b CKD (CMS/HCC) (Primary Dx); Vitamin D deficiency; Gastroesophageal reflux disease without esophagitis; Other hyperlipidemia; Other depression; Superficial phlebitis; Acute cough Social History Tobacco Use Types Packs/Day Years [...] care for your loved ones. For example, childcare administrator or elderly care for an older adult? [...] Orientation Straight 01/19/2025 9: 57 AM EDT documented as of this encounter Last Filed Vital Signs Vital Sign Reading [...] Mass Index 42.47 01/18/2025 3:20 PM EDT documented in this encounter Progress Notes * Lili Moon MD - 01/18/2025 3:45 PM EDT Chief Complaint: Chief Complaint Patient presents with Diabetes Hyperlipidemia IDENTIFIER: Lourdes Guerrier is a 64 y.o. old female HPI She comes for evaluation with asthma, diabetes with proteinuria, depression, elevated cholesterol. She has had a cough with head congestion for a week, has not tested for covid. She denies any fever or sore throat. She notes that her glycohemoglobin has gone up, she has gained about 20 pounds. She continues on albuterol and Flovent if needed, Lipitor for her cholesterol as well as Protonix for reflux and venlafaxine for depression. She is being seen by vascular with a painful large varicose vein in her left upper leg with a clear superficial phlebitis and cords palpable. She does have testingscheduled and a follow-up appointment. ROS: General: No malaise, significant weight loss or fever Respiratory: No cough, wheezing or shortness of breath Cardiovascular: No chest pain, palpitations, no orthopnea Endono polyuria or polydipsia Past Medical History: Patient Active Problem List Diagnosis Date Noted Superficial phlebitis 01/18/2025 Microalbuminuria 04/24/2024 Type II diabetes mellitus with renal manifestations (CMS/HCC) 04/24/2024 Type 2 diabetes mellitus with cataract 05/09/2023 Nocturnal hypoxemia 12/02/2019 Sleep apnea 12/02/2019 Type 2 diabetes mellitus with morbid obesity 03/06/2019 Atypical endocervical cells on Pap smear 03/05/2019 Intermittent vertigo 03/05/2019 Depression 07/08/2018 GERD (gastroesophageal reflux disease) 04/01/2018 Colon polyp 08/25/2014 Internal hemorrhoids 08/20/2014 Vitamin D deficiency 04/14/2014 Allergic rhinitis 09/18/2006 Hyperlipidemia 09/18/2006 Asthma 09/18/2006 Surgical History: Past Surgical History: Procedure Laterality Date COLONOSCOPY 11/2022 SCR MAMMO BI INCL CAD Bilateral 09/13/2021 WISDOM TOOTH EXTRACTION Family History: Family History Problem Relation Name Age of Onset Diabetes Mother brain aneurysm Heart attack Maternal Grandfather Breast cancer Neg Hx Colon cancer Neg Hx Ovarian cancer Neg Hx Uterine cancer Neg Hx Social History: Social History Tobacco Use Smoking status: Never Smokeless tobacco: Never Substance Use Topics Alcohol use: Yes Allergies: Hydrocodone bitartrate, Metaxalone, Other, and Zinc Medications: Outpatient Medications Marked as Taking for the 01/18/25 encounter (Office Visit) with Lili Moon MD Medication Sig Dispense Refill albuterol HFA (PROAIR [...] (one) time each day. 90 capsule 1 Medication Discontinued/Reordered: There are no discontinued medications. Vitals: Blood pressure 110/60, pulse 76, temperature 36.1 ??C (96.9 ??F), temperature source Temporal, resp. rate 16, height 1.676 m (66 ), weight 119 kg (263 lb 1.6 oz), SpO2 95%. Body mass index is 42.47 kg/m??.BMI is greater than 25.0 (above the normal range) - see Plan Physical Exam: General: patient is in no acute distress. Tympanic membranes clear, no air fluid levels or erythema. Pharynx clear without tonsillar enlargement or exudates. Neck supple without adenopathy, no thyromegaly. Lungs clear with auscultation. Heart: regular S1S2 without murmur, rub or gallop. Extremitieswithout cyanosis, clubbing or edema. There is a long segment of superficial thrombophlebitis and palpable cord in her left upper leg, no surrounding erythema. Labs: COVID testing is negative Lab Results Component Value Date HGBA1C 6.8 (H) 01/01/2025 Lab Results Component Value Date GLUCOSE 130 (H) 01/01/2025 CALCIUM 9.1 01/01/2025 NA 141 01/01/2025 K 4.5 01/01/2025 CO2 29 01/01/2025 CL 109 01/01/2025 BUN 15 01/01/2025 CREATININE 0.90 01/01/2025 Lab Results Component Value Date CHOL 151 01/01/2025 TRIG 68 01/01/2025 HDL 57 01/01/2025 LDLCALC 80 01/01/2025 VLDL 13.6 01/01/2025 NONHDLC 94 01/01/2025 CHOLHDL 2.6 01/01/2025 Impression: 1. Type 2 diabetes mellitus with stage 3 chronic kidney disease, without long- term current use of insulin, unspecified whether stage 3a or 3b CKD ([facility]) 2. Vitamin D deficiency 3. Gastroesophageal reflux disease without esophagitis 4. Other hyperlipidemia 5. Other depression 6. Superficial phlebitis 7. Acute cough Assessment and Plan: Her respiratory symptoms sound viral, have been present for only a week and she will continue with conservative measures, return if symptoms worsening or not improving. She does have a palpable cord in the left upper leg and is already being seen by vascular with ongoing evaluation. Her sugar control has worsened with glycohemoglobin jumping up to 6.8, she has gained 20 pounds and has not been ascareful with previous on diet. We did discuss importance of working on weight control and getting out and walking, calorie restriction and weight loss. She will continue with baseline measures for her cholesterol including the Lovaza, venlafaxine for depression as well as Lipitor and Protonix. She notes that she is having ongoing physical therapy for her shoulder which is much improved. She will return in 4 months with repeat testing prior to the visit, sooner if needed. Myself and my colleagues have maintained a long-term, longitudinal relationship with this patient, overseeing care of chronic conditions including diabetes, GE reflux, elevated cholesterol, depression, vitamin D deficiency. This care relationship has significantly influenced my decision making and treatment plans during today's encounter. documented in this encounter Plan of Treatment Upcoming Encounters Date Type Department Care Team (Late st Contact Info) Description 01/19/2025 4:00 PM EDT Treatment [address] [phone] Yaakov Celis, REMI 01/21/2025 3:30 PM EDT Treatment [address] [phone] Randy Gbibs, REMI 01/25/2025 3:30 PM EDT Treatment [address] [place] [phone] Vikram Schwarz, FIELD MARKETING ASSOCIATE 01/27/2025 3:30 PM EDT Treatment [facility] [address] [phone] Randy Gibbs, FIELD MARKETING ASSOCIATE 02/01/2025 3:30 PM EDT Treatment [facility] [address] [phone] Randy Gibbs, FIELD MARKETING ASSOCIATE 02/03/2025 3:30 PM EDT Treatment [address] [phone] Randy Gibbs, FIELD MARKETING ASSOCIATE 02/08/2025 3:30 PM EDT Treatment [facility] [address] [phone] Jaden Allan, PT [address] [place] [address] 05/24/2025 11:30 AM EDT Office Visit Adult Medicine [facility] [address] [place], [place] [phone] Heidi Esquivel PA [address] [place] [address] Scheduled Orders Name Type Priority Associated Diagnoses Orde r Schedule Hemoglobin A1c Lab Routine Type 2 diabetes mellitus with stage 3 chronic kidney disease, without long-term current use of insulin, unspecified whether stage 3a or 3b CKD ([facility]) Expected: 04/19/2025, Expires: 01/18/2026 documented as of this encounter Goals Goal Patient Goal Type Associated Problems Recent Progress Patient-Stated? Author PT STG x 8 visits General No Jaden Allan, PT Note: [x] Pt will report an [...] as of this encounter Visit Diagnoses Diagnosis Type 2 diabetes mellitus with stage 3 chronic kidney disease, without long-term current use of insulin, unspecified whether stage 3a or 3b CKD (CMS/HCC)- Primary Vitamin D deficiency Gastroesophageal reflux disease without esophagitis Esophageal reflux Other hyperlipidemia Other depression Superficial phlebitis Phlebitis and thrombophlebitis of unspecified site Acute cough documented in this encounter Additional Health Concerns Assessment Noted Time PHQ-9 Depression Total Score: 1 10/31/19 25 11:54 PM EST documented as of this encounter Care Teams Engine Repairer Relationship Specialty Start Date End Date Lili Moon MD [address] [place] [address] PCP - General Internal Medicine 08/25/21 documented as of this encounter
== END 2025-01-19 12:47 | disposition home or self-care (01) ==
LOC: HO.US 12:46
PROVIDERS: PCP Internal Medicine; Visit Provider Physician Assistant Surgical
DX: I83.11 Varicose veins of right lower extremity with inflammation (principal); I83.12 Varicose veins of left lower extremity with inflammation
CPT/HCPCS: 93970

== ENCOUNTER → 2025-01-19 12:48 | Outpatient (BNV) | payer OTHER, SELFPAY | PROVIDERS: PCP Internal Medicine; Visit Provider Radiology Diagnostic Radiology | DX: I83.11 Varicose veins of right lower extremity with inflammation (principal) | CPT/HCPCS: 93970 ==

== ENCOUNTER → 2025-02-02 15:21 | Outpatient (AMB) | payer OTHER, SELFPAY ==
--- NOTE | 2025-02-02 15:25 | MHC.OFFVIS ---
Intake Visit Reasons: follow up s/p [facility] 01/19/25 Intake Note: follow up [facility] 01/19/25 for Left LE VV w/ pain. Pt states it has decreased in swelling and still painful to the touch. Supervising Law Enforcement Analyst Required: No Accompanied by: Self / Same As Patient Allergies Hydrocodone by Bitartrate Allergy (Unknown, Uncoded 02/02/25 15:35) Hives Skelaxin Allergy (Unknown, Uncoded 02/02/25 15:35) hives Zinc Allergy (Unknown, Uncoded 02/02/25 15:35) Swelling tongue HPI HPI follow up s/p [facility] 01/19/25: Details: Lourdes is presenting today as a follow up to [facility], performed on 01/19/25. She states that her leg feels a little better and there is less redness and pain. She continues to have pain with palpation or if there is clothing that rubs on it. She denies any new varicose veins. She states the bruising continues on her left upper thigh, but has diminished towards her knee/outer thigh. She has no new concerns today. [facility] Medical History Hyperlipidemia Allergic rhinitis Vitamin D deficiency Asthma Internal hemorrhoids Colon polyp GERD (gastroesophageal reflux disease) Depression Atypical endocervical cells on Pap smear Intermittent vertigo Morbid obesity with BMI of 40.0-44.9, adult Nocturnal hypoxemia Sleep apnea Diabetes Surgical History Hx of wisdom tooth extraction H/O colonoscopy Social History Comment: counts correct Patient Tobacco Use Status: Never used Tobacco Review of Systems Const Reports as per HPI and Denies weakness ENT Reports Normal hearing present and Denies dizziness Card Reports as per HPI, Denies chest pain, Denies chest pain at rest, Denies chest pain with activity, Denies dyspnea and Denies dyspnea on exertion Resp Reports as per HPI, Denies cough, Denies dyspnea and Denies dyspnea on exertion GI Reports as per HPI, Denies abdominal pain, Denies nausea and Denies vomiting Musc Denies numbness Skin/Breast Reports as per HPI, Denies erythema and Denies wounds Neuro Reports Normal hearing present, Denies dizziness, Denies numbness, Denies Sensory deficit (Neuro) and Denies weakness Psych Reports no additional complaints Endo Reports no additional complaints Physical Exam Const General: healthy appearing and no acute distress Orientation/consciousness: patient oriented x3 HEENT Head: Yes normal to inspection Ears: hearing grossly normal bilaterally Mouth: Normal oral and palatal mucosa present Resp Effort & Inspection: normal respiratory effort and able to speak in complete sentences Auscultation: clear to auscultation bilaterally Cardio Jugular venous distension: no JVD Rate: regular rate Rhythm: regular rhythm Heart sounds: S1 normal heart sound present and S2 normal heart sound present Bruits: no abdominal aortic bruits, no carotid bruits, no femoral bruits and no renal bruits Peripheral pulses: Peripheral pulses 2+ throughout GI Inspection: Yes normal to inspection Palpation (GI): No Abdominal aortic bruit present Skin General skin exam: no rashes or lesions noted Wounds: no wounds Hair: normal Neuro General: patient oriented x3 Cranial nerves: Yes Normal hearing present Cognition (Neuro): normal cognition Gait exam (Neuro): Normal gait present Motor exam (neuro): 5/5 motor strength present throughout Sensory Exam: No Sensory deficit (Neuro) Extrem Other: Left lower extremity: rope like varicosity, appx 5cm in length, noted on the left upper thigh across the leg. Slightly painful to palpation.Yellow/brown bruised discoloration continues over the varicosity. SV noted around the knee. Palpable DP pulses. Trace peripheral edema noted. Right lower extremity: small rope like varicosity noted on the lateral aspect below the pretibial area, appx 2-3cm in length, not painful to palpation. SV noted around the knee. Palpable DP pulse. Trace peripheral edema noted. General: Yes normal to inspection, Yes full ROM, Yes capillary refill normal and Yes normal gait Results Reviewed Results Reviewed: Brief summary of venous insufficiency testing is as follows: right great saphenous vein: negative right small saphenous vein: negative right accessory vein: none present left great saphenous vein: negative left small saphenous vein: negative left accessory vein: none present Please note there is no evidence of any venous aneurysms or significant tortuosity There are 2 VV noted in the right distal thigh and proximal calf. There is also one in the left mid calf. Assessment & Plan Assessment & Plan (1) Varicose veins of both lower extremities with inflammation: Code(s): I83.11 - Varicose veins of right lower extremity with inflammation; I83.12 - Varicose veins of left lower extremity with inflammation Category: Medical Plan: Lourdes is presenting today for a follow up to US, performed on 01/19/25. There was no insufficiency found on US. She does continue to endorse the rope-like varicosity over her left upper thigh; she states the redness has gone away and it is only painful to palpation/if clothes rub up against it. She also continues to endorse bruising over the varicosity, which has not decreased. We had a lengthy discussion about having a microphlebectomy if this varicosity continues to affect her. I discussed with her the procedure as well as possible complications. The pt states she will have to think about the procedure; she has a lot of things going on in her life over the next 1.5m. I discussed with her that if it worsens, she can reach out to us sooner. I discussed with her that she could also let it be and not do anything until it is bothering her again. She states that if she was to have the micro, it would have to be in the beginning of March. I discussed with her that she can call us up as soon as she would be able to and we could schedule her in for March. Thank you for allowing us to participate in the patient's care. If there are any questions or concerns, please do not hesitate to reach out to us. Coding Level of Care Code Est Pt Level 4 (42440) Diagnoses Varicose veins of both lower extremities with inflammation I83.11; I83.12 Comment review of US
--- OUTSIDE RECORDS SUMMARY | 2025-02-02 18:15 | XMS_ITS | Clinical Summary ---
Author Organization [address] Address [address] [place], [place] [address] [address] Phone Care Team Providers Care Clamshell Operator Name Role Phone Lili Moon MD Primary Care Provider [phone] Allergies Active Allergy Reactions Criticality Noted Date [...] 01/18/2025 Microalbuminuria 04/24/2024 Type II diabetes mellitus wi th renal manifestations ([facility] V24, [facility] V28) 04/24/2024 Type 2 diabetes mellitus wit h cataract ([facility] V24, [facility] V28) 05/09/2023 Nocturnal hypoxemia 12/02/2019 Overview (07/31/2024): Overnight on CPAP 02/02/21 shows good control at 99.5% above 90%. No need for supplemental oxygen. Sleep apnea 12/02/2019 Overview (07/31/2024): INCONSISTENT USE OF CPAP (Jul 2022) [facility] Home Sleep Apnea Test: Date 11/30/2019; [...] sleep apnea test. Type 2 diabetes mellitus wit h morbid obesity ([facility] V24, [facility] V28) 03/06/2019 Atypical endocervical cells on Pap smear 019 Intermittent vertigo 03/05/2019 Depression 07/08/2018 GERD (gastroesophageal reflux disease) 8 Colon polyp 08/25/2014 Internal hemorrhoids 08/20/2014 Vitamin D deficiency 04/14/2014 Allergic rhinitis 09/18/2006 Hyperlipidemia 09/18/2006 Asthma 09/18/2006 Encounters Date Type Department Care Team Description 01/21/2025 3:30 PM EDT Treatment [address] [phone] Randy Gibbs ENGINE DESIGNER Chronic pain of right upper extremity (Primary Dx) 01/19/2025 4:00 PM EDT Treatment [address] [phone] Yaakov Celis ENGINE DESIGNER Chronic pain of right upper extremity (Primary Dx) 01/18/2025 3:45 PM EDT Office Visit Adult Medicine [address] [phone] Lili Moon MD Type 2 diabetes mellitus with stage 3 chronic kidney disease, without long-term current use of insulin, unspecified whether stage 3a or 3b CKD ([facility] V24, [facility] V28) (Primary Dx); Vitamin D deficiency; Gastroesophageal reflux disease without esophagitis; Other hyperlipidemia; Other depression; Superficial phlebitis; Acute cough 01/06/2025 4:00 PM EDT Treatment [address] [phone] Jaden Allan, PT Chronic pain of right upper extremity (Primary Dx) 12/30/2024 4:00 PM EDT Treatment [address] [phone] Yaakov Celis, ENGINE DESIGNER Chronic pain of right upper extremity (Primary Dx) 12/28/2024 4:30 PM EDT Treatment [address] [phone] Roland Manning, ENGINE DESIGNER Chronic pain of right upper extremity (Primary Dx) 12/23/2024 4:00 PM EDT Treatment [address] [phone] Yaakov Celis, ENGINE DESIGNER Chronic pain of right upper extremity (Primary Dx) 12/16/2024 4:00 PM EST Treatment [address] [phone] Yaakov Celis, ENGINE DESIGNER Chronic pain of right upper extremity (Primary Dx) 12/14/2024 4:00 PM EST Treatment [address] [phone] Yaakov Celis, ENGINE DESIGNER Chronic pain of right upper extremity (Primary Dx) 12/10/2024 4:00 PM EST Treatment [address] [phone] Randy Gibbs, ENGINE DESIGNER Chronic pain of right upper extremity (Primary Dx) 12/07/2024 4:30 PM EST Evaluation [address] [phone] Jaden Allan, PT Chronic pain of right upper extremity from Last 3 Months Immunizations Name Administration [...] deficiency 04/14/2014 Morbid obesity with BMI of 4 0.0-44.9, adult ([facility] V24, [facility] V28) 12/05/2018 Atypical endocervical cells on Pap smear 019 Intermittent vertigo 03/05/2019 Esophagitis Type 2 diabetes mellitus with cataract ([facility] V24, [facility] V28) 05/09/2023 Type II diabetes mellitus wi th renal manifestations ([facility] V24, [facility] V28) 04/24/2024 Family History Medical History Relation Name [...] for your loved ones. For example, children teacher or elderly care for an older adult? [...] Care Team (Late st Contact Info) Description 02/08/2025 3:30 PM EDT Treatment [facility] [address] [phone] Jaden Allan, PT [address] [place] [address] 05/24/2025 11:30 AM EDT Office Visit Adult Medicine [facility] [address] [place] [address] Heidi Esquivel PA [address] [place] [address] Health Maintenance Due Date Last Done Comments Diabetes: Annual Foot Exam 1972 RSV Immunization Adult Patients (1 - Risk 60-74 years 1-dose series) 2022 12/16/2023 HIV Screening 09/22/2022 Cervical Cancer Screening: HPV 06/04/2024 06/04/2019 COVID-19 Vaccine (6 - Pfizer risk season) 2025 09/01/2024, 12/16/2023, 11/20/2021, Additional history exists Diabetes: Annual Retina Eye Exam 07/02/2025 07/02/2024 [...] on patient's age to complete this topic Influenza Vaccine Completed 09/01/2024, , 08/07/2022, Additional [...] unspecified whether stage 3a or 3b CKD ([facility] V24, [facility] V28) HEMOGLOBIN A1C Routine 01/01/2025 8:12 AM EDT Type 2 diabetes mellitus with stage 3 chronic kidney disease, without long-term current use of insulin, unspecified whether stage 3a or 3b CKD ([facility] V24, [facility] V28) LIPID PANEL WITH REFLEX TO DIRECT LDL Routine 01/01/2025 8:12 AM EDT Other hyperlipidemia MICROALBUMIN CREATININE URINE RATIO Routine 01/01/2025 8:12 AM EDT Type 2 diabetes mellitus with stage 3 chronic kidney disease, without long-term current use of insulin, unspecified whether stage 3a or 3b CKD ([facility] V24, [facility] V28) MAMMO DIGITAL SCREENING W ERVIN BILAT Routine [...] LAB CHEMISTRY METHOD 01/01/2025 12:24 PM EDT [facility] Triglycerides 68 0 - 150 mg/dL LAB CHEMISTRY METHOD 01/01/2025 12:24 PM EDT [facility] HDL 57 >=40 mg/dL LAB CHEMISTRY METHOD 01/01/2025 12:24 PM EDT [facility] LDL Calculated 80 0 - 100 mg/dL LAB CHEMISTRY METHOD 01/01/2025 12:24 PM EDT [facility] VLDL Cholesterol Fermin 13.6 mg/dL LAB CHEMISTRY METHOD 01/01/2025 12:24 PM EDT [facility] Non HDL Chol. (LDL+VLDL) 94 <145 mg/dL LAB CHEMISTRY METHOD 01/01/2025 12:24 PM EDT [facility] Chol/HDL Ratio 2.6 0.0 - 4.4 LAB CHEMISTRY METHOD 01/01/2025 12:24 PM EDT [facility] Blood Venous blood specimen / Unknown Venipuncture / Unknown 01/01/2025 8:12 AM EDT 01/01/2025 8:12 AM EDT us Lili Moon MD LAB BLOOD ORDERABLES Final Resul t [facility] [address] [place] [address], [place] [phone] * Microalbumin creatinine urine ratio (01/01/2025 8:12 AM EDT) Creatinine, Urine 186.0 mg/dL LAB CHEMISTRY METHOD 01/01/2025 12:47 PM EDT [facility] Microalb, Ur 11.9 0.0 - 29.0 mg/L LAB CHEMISTRY METHOD 01/01/2025 12:47 PM EDT [facility] Microalb/Creat Ratio 6 <30 mg/g creat LAB CHEMISTRY METHOD 01/01/2025 12:47 PM EDT [facility] Urine Urine specimen obtained by clean catch procedure / Unknown Non-blood Collection / Unknown 01/01/2025 8:12 AM EDT 01/01/2025 8:12 AM EDT us Lili Moon MD LAB URINE ORDERABLES Final Resul t Performing Organization Address [facility]/ZIP Co de Phone Number [facility] [address] [place] [address], [place] [phone] * (ABNORMAL) Hemoglobin A1c (01/01/2025 8:12 AM EDT) [facility] Hemoglobin A1C 6.8(H) <6.5 % LAB CHEMISTRY METHOD 01/01/2025 11:17 AM EDT [facility] Mean Bld Glu Estim. 148 mg/dL LAB CHEMISTRY METHOD 01/01/2025 11:17 AM EDT [facility] Blood Venous blood specimen / Unknown Venipuncture / Unknown 01/01/2025 8:12 AM EDT 01/01/2025 8:12 AM EDT us Lili Moon MD LAB BLOOD ORDERABLES Final Resul t [facility] [address] [place] [address], [place] [phone] * (ABNORMAL) Comprehensive metabolic panel (01/01/2025 8:12 AM EDT) [facility] Sodium 141 133 - 145 mmol/L LAB CHEMISTRY METHOD 01/01/2025 1:57 PM [facility] Potassium 4.5 3.5 - 5.5 mmol/L LAB CHEMISTRY METHOD 01/01/2025 1:57 PM [facility] Chloride 109 96 - 110 mmol/L LAB CHEMISTRY METHOD 01/01/2025 1:57 PM [facility] CO2 29 21 - 32 mmol/L LAB CHEMISTRY METHOD 01/01/2025 1:57 PM T [facility] Anion Gap 3 3 - 11 LAB CHEMISTRY METHOD 01/01/2025 1:57 PM [facility] Glucose 130(H) 70 - 100 mg/dL LAB CHEMISTRY METHOD 01/01/2025 1:57 PM [facility] BUN 15 5 - 25 mg/dL LAB CHEMISTRY METHOD 01/01/2025 1:57 PM [facility] Creatinine 0.90 0.50 - 1.10 mg/dL LAB CHEMISTRY METHOD 01/01/2025 1:57 PM EDT [facility] eGFR 72 >=60 mL/min/1. 73m2 LAB CHEMISTRY METHOD 01/01/2025 1:57 PM EDT [facility] Comment:Calculation based on the??Chronic Kidney Disease Epidemiology Collaboration (CKD-EPI) equation refit??without adjustment for race. BUN/Creatinine Ratio 16.7 LAB CHEMISTRY METHOD 01/01/2025 1:57 PM EDT [facility] Calcium 9.1 8.5 - 10.5 mg/dL LAB CHEMISTRY METHOD 01/01/2025 1:57 PM [facility] AST (SGOT) 23 10 - 42 unit/L LAB CHEMISTRY METHOD 01/01/2025 1:57 PM [facility] ALT (SGPT) 29 10 - 60 unit/L LAB CHEMISTRY METHOD 01/01/2025 1:57 PM T [facility] Alkaline Phosphatase 91 42 - 121 unit/L LAB CHEMISTRY METHOD 01/01/2025 1:57 PM T [facility] Total Protein 7.3 6.0 - 8.0 g/dL LAB CHEMISTRY METHOD 01/01/2025 1:57 PM [facility] Albumin 3.4 3.2 - 5.0 g/dL LAB CHEMISTRY METHOD 01/01/2025 1:57 [facility] Total Bilirubin 0.4 0.0 - 1.4 mg/dL LAB CHEMISTRY METHOD 01/01/2025 1:57 PM [facility] Blood Venous blood specimen / Unknown Venipuncture / Unknown 01/01/2025 8:12 AM EDT 01/01/2025 8:12 AM EDT us Lili Moon MD LAB BLOOD ORDERABLES Final Resul t [facility] [address] [place] [address], * (ABNORMAL) MG Mammo Digital Screening w [...] visualization of lateral right breast. Mammo Location: [facility], [address] [place] [address], [phone], . -------- FINAL REPORT -------- Dictated By: Sam Ellington Dictated Date: 09/25/2024 13:50 ET Assigned Physician: Sam Ellington Reviewed and Electronically Signed By: Sam Ellington Signed Date: 09/25/2024 15:01 ET Workstation ID: [id number] Transcribed By: Self Edit Transcribed Date: 09/25/2024 [...] and visualization oflateral right breast. Mammo Location: [facility], [address] [place] [address], [phone], . -------- FINAL REPORT -------- Dictated By: Sam Ellington Dictated Date: 09/25/2024 13:50 ET Assigned Physician: Sam Ellington Reviewed and Electronically Signed By: Sam Ellington Signed Date: 09/25/2024 15:01 ET Workstation ID: [id number] Transcribed By: Self Edit Transcribed Date: 09/25/2024 13:51 ET Lili Moon MD IMG BI PROCEDURES Final Result * Diabetes Eye Exam (07/02/2024) [facility] Diabetes: Annual Retina Eye Exam abstracted Result [facility] Provider HEALTH MAINTENANCE Final Result * Colonoscopy (12/05/2022) [facility] Colonoscopy no interpretation , abstracted Anatomical Region Laterality Modality Other Result [facility] Provider HEALTH MAINTENANCE Final Result * Cervical Cancer Screening: HPV (06/04/2019) [facility] Cervical Cancer Screening: HPV negative, abstracted [facility] Provider HEALTH MAINTENANCE Final Result * Hepatitis C Screening (03/05/2019) [facility] Hepatitis C Screening abstracted [facility] Provider HEALTH MAINTENANCE Final Result from Last 3 Months or Most Recently Relevant to Health Maintenance Insurance [employer] [facility] [place] [address] [employer] [facility] Care Teams Clamshell Operator Relationship Specialty Start Date End Date Lili Moon MD [address] [place] [id number] PCP - General Internal Medicine 08/25/21
== END ==
LOC: HO.HVS 15:21
PROVIDERS: PCP Internal Medicine; Visit Provider Physician Assistant Surgical
DX: I83.11 Varicose veins of right lower extremity with inflammation (principal); I83.12 Varicose veins of left lower extremity with inflammation
CPT/HCPCS: 99214